=== PATIENT | female | born 1950 | race Caucasian/White ===

== ENCOUNTER 2017-06-09 16:41 | Emergency (ER) | payer MEDICARE, OTHER ==
[2017-06-09 17:03] VITALS: PULSE 66; TEMP 98; BMI 21.6
--- NOTE | 2017-06-09 17:08 | PDOC ---
Rapid Medical Evaluation Chief Complaint: Lightheaded Time Seen by Provider: 06/09/17 17:06 Medical Evaluation: Allergies Allergy/AdvReac Type Severity Reaction Status Date / Time No Known Allergies Allergy Verified 06/09/17 17:00 Vital Signs Temp Pulse Resp BP Pulse Ox 98 F 66 19 138/74 99 06/09/17 17:00 06/09/17 17:00 06/09/17 17:00 06/09/17 17:00 06/09/17 17:00 06/09/17 17:06 I have performed a brief in-person evaluation of this patient. The patient presents with a chief complaint of dizziness x 4 days. Patient reports dizziness especially with arising in the morning and changing position. Denies chest pain or shortness of breath. States as day progress dizziness is better but when she walks she has to stop at times Pertinent physical exam findings NAD lungs cta bilateral heart s1 s2 neuro: grossly intact I have ordered the following: meclizine, labs, ekg The patient will proceed to the ED for further evaluation.
[2017-06-09] MEDS ORDERED: MECLIZINE HCL 25 MG TABLET (FP) PO ONE (17:09)
[2017-06-09] MEDS ORDERED: MECLIZINE HCL 25 MG TABLET (FP) ONE (17:22)
--- NOTE | 2017-06-09 17:41 | PDOC ---
History of Present Illness - General Chief Complaint: Lightheaded Stated Complaint: FATIGUE Time Seen by Provider: 06/09/17 17:06 History Source: Patient, Family - History of Present Illness Timing/Duration: other Associated Symptoms: denies: chest pain, headaches, nausea/vomiting, shortness of breath, weakness Past History - Past Medical History Allergies/Adverse Reactions: Allergies Allergy/AdvReac Type Severity Reaction Status Date / Time No Known Allergies Allergy Verified 06/09/17 17:00 Home Medications: Ambulatory Orders Amlodipine Besylate [Norvasc -] 5 mg PO DAILY 08/01/14 Aspirin [Aspirin EC] 81 mg PO DAILY 08/01/14 Atorvastatin Ca [Lipitor -] 20 mg PO DAILY 08/01/14 Bisacodyl [Laxative] 20 mg PO ONCE 08/01/14 Lisinopril [Prinivil] 10 mg PO DAILY 08/01/14 Lorazepam 2 mg PO BID PRN 08/01/14 Metoprolol Succinate [Toprol Xl -] 25 mg PO DAILY 08/01/14 Meclizine HCl [Antivert -] 25 mg PO TID PRN #21 tablet 06/09/17 COPD: No Diabetes: Yes ("PRE-DIABETES") HTN: Yes Hypercholesterolemia: Yes (HYPERLIPIDEMIA) Psychiatric Problems: Yes (ANXIETY ON MEDS) Other medical history: VERTIGO - Immunization History Immunization Up to Date: Yes - Suicide/Smoking/Psychosocial Hx Smoking History: Never smoked Have you smoked in the past 12 months: No Hx Alcohol Use: No Substance Use Type: None Review of Systems - Review of Systems Constitutional: No: Chills, Fever, Weakness Respiratory: No: Shortness of Breath Cardiac (ROS): No: Chest Pain, Palpitations, Syncope ABD/GI: No: Nausea, Vomiting Neurological: Yes: Dizziness. No: Headache, Numbness, Tingling, Weakness *Physical Exam - Vital Signs Last Vital Signs Temp Pulse Resp BP Pulse Ox 98 F 66 19 138/74 99 06/09/17 17:00 06/09/17 17:00 06/09/17 17:00 06/09/17 17:00 06/09/17 17:00 - Physical Exam General Appearance: Yes: Appropriately Dressed. No: Apparent Distress HEENT: positive: Normal Voice Neck: positive: Supple Respiratory/Chest: positive: Lungs Clear, Normal Breath Sounds. negative: Respiratory Distress Cardiovascular: positive: Regular Rate, S1, S2 Gastrointestinal/Abdominal: positive: Soft. negative: Tender Extremity: positive: Normal Inspection Integumentary: positive: Dry, Warm Neurologic: positive: Fully Oriented, Alert, Normal Mood/Affect, Motor Strength 5/5, Finger to Nose (no nystagmus, Verena intact, no atxia, no drift). negative: Facial Droop, Confused, Disoriented ED Treatment Course - LABORATORY CBC & Chemistry Diagram: 06/09/17 17:51 06/09/17 17:51 - Medications Given in the ED: ED Medications Discontinued Medications Generic Name Dose Route Start Last Admin Trade Name Freq PRN Reason Stop Dose Admin Meclizine HCl 25 mg 06/09/17 17:09 06/09/17 17:24 Antivert - PO 06/09/17 17:10 25 mg ONCE ONE Administration Medical Decision Making - Medical Decision Making 06/09/17 17:26 66-year-old female, history of hypertension and pre-diabetes, here with dizziness. As per daughter, for the past 4 days, pt has been c/o sensation of room spinning, intermittent and worse when getting up from supine position. Denies any headache, dizziness, focal weakness, slurred speech or visual changes. No tinnitus or recent uri sxs. Daughter reports that patient had "vertigo" several years ago, but was never on meds. See exam Recurrent vertigo M/l peripheral, unlikely CVA Stable and well justine w/ no focal deficits -meclizine -orthostatic BP/ekg/labs -reassess 06/09/17 17:48 06/09/17 19:09 Signed out to MELYSSA Martinez pending CT results and reassessment. Plan is that upon discharge patient to get a prescription for meclizine and giving neuro follow-up 06/09/17 19:09 *DC/Admit/Observation/Transfer Diagnosis at time of Disposition: Vertigo, Orthostatic hypotension - Discharge Dispostion Disposition: HOME - Prescriptions Prescriptions: Meclizine HCl [Antivert -] 25 mg PO TID PRN #21 tablet PRN Reason: Vertigo - Referrals Referrals: Ailyn Saleh MD [Primary Care Provider] - Call tomorrow - Patient Instructions Printed Discharge Instructions: Vertigo Additional Instructions: Return immediately to the ER; New or severe headache, Temperature greater than 100.4F (38C), Seeing double or having trouble seeing clearly, Trouble speaking or hearing. Weakness in an arm or leg, An inability to walk without assistance, Passing out, Numbness or tingling, Chest pain and Vomiting that will not stop. Follow up with your doctor as soon as possible. take meclizine as prescribed. - Post Discharge Activity
[2017-06-09 18:26] LABS: BASO % 0.9 % (0-2.0); EOS % 0.4 % (0-4.5); HEMATOCRIT 40.8 % (32.4-45.2); LYMPH % 22.9 % (8-40); MCH 31.3 pg (25.7-33.7); MCHC 34.4 g/dl (32.0-36.0); MEAN PLT VOLUME 9.9 fl (7.5-11.1); MONO % 6.5 % (3.8-10.2); NEUT % 69.3 % (42.8-82.8); PLATELET COUNT 155 K/MM3 (134-434); RBC 4.48 M/mm3 (3.60-5.2); RDW 13.7 % (11.6-15.6)
[2017-06-09 18:41] LABS: PROTHROMBIN TIME (PATIENT) 11.3 SEC (9.98-11.88)
[2017-06-09 18:43] LABS: ACTIVATED PTT 29.1 SECONDS (26.9-34.4)
[2017-06-09 18:57] LABS: ANION GAP 7 (8-16); BILIRUBIN,TOTAL 0.5 mg/dL (0.2-1.0); BLOOD UREA NITROGEN 14 mg/dL (7-18); CHLORIDE 105 mmol/L (98-107); CO2 26 mmol/L (21-32); CREATININE 0.6 mg/dL (0.55-1.02); GLUCOSE,RANDOM 105 mg/dL (74-106); POTASSIUM 4.1 mmol/L (3.5-5.1); SGOT/AST 16 U/L (15-37); SGPT/ALT 25 U/L (12-78); SODIUM 138 mmol/L (136-145)
[2017-06-09 19:01] LABS: ALK PHOS 73 U/L (45-117)
--- NOTE | 2017-06-09 19:37 | PDOC ---
*Physical Exam - Vital Signs Last Vital Signs Temp Pulse Resp BP Pulse Ox 98 F 66 19 138/74 99 06/09/17 17:00 06/09/17 17:00 06/09/17 17:00 06/09/17 17:00 06/09/17 17:00 ED Treatment Course - LABORATORY CBC & Chemistry Diagram: 06/09/17 17:51 06/09/17 17:51 - ADDITIONAL ORDERS Additional order review: Laboratory Results 06/09/17 06/09/17 17:51 17:51 PT with INR 11.30 INR 1.00 PTT (Actin FS) 29.1 Sodium 138 Potassium 4.1 Chloride 105 Carbon Dioxide 26 Anion Gap 7 L BUN 14 Creatinine 0.6 Creat Clearance w eGFR > 60 Random Glucose 105 Calcium 9.0 Total Bilirubin 0.5 AST 16 ALT 25 Alkaline Phosphatase 73 Creatine Kinase 28 Troponin I < 0.02 Total Protein 7.0 Albumin 4.0 06/09/17 17:51 RBC 4.48 MCV 91.0 MCHC 34.4 RDW 13.7 MPV 9.9 Neutrophils % 69.3 Lymphocytes % 22.9 Monocytes % 6.5 Eosinophils % 0.4 Basophils % 0.9 - Medications Given in the ED: ED Medications Discontinued Medications Generic Name Dose Route Start Last Admin Trade Name Freq PRN Reason Stop Dose Admin Meclizine HCl 25 mg 06/09/17 17:09 06/09/17 17:24 Antivert - PO 06/09/17 17:10 25 mg ONCE ONE Administration Medical Decision Making - Medical Decision Making 06/09/17 19:56 patient reports feeling better. PERRLA, no nystagmus. - Ruba cabrera pike. Head CT negative. will d/c home with meclizine 06/09/17 20:39 Orthostatic v/s noted. patient instructed to increase PO and safety precautions reviewed. *DC/Admit/Observation/Transfer Diagnosis at time of Disposition: Vertigo, Orthostatic hypotension - Discharge Dispostion Disposition: HOME - Prescriptions Prescriptions: Meclizine HCl [Antivert -] 25 mg PO TID PRN #21 tablet PRN Reason: Vertigo - Referrals Referrals: Ailyn Saleh MD [Primary Care Provider] - Call tomorrow - Patient Instructions Printed Discharge Instructions: Vertigo Additional Instructions: Return immediately to the ER; New or severe headache, Temperature greater than 100.4F (38C), Seeing double or having trouble seeing clearly, Trouble speaking or hearing. Weakness in an arm or leg, An inability to walk without assistance, Passing out, Numbness or tingling, Chest pain and Vomiting that will not stop. Follow up with your doctor as soon as possible. take meclizine as prescribed. - Post Discharge Activity
[2017-06-09 20:30] VITALS: BP 131/74
--- NOTE | 2017-06-10 14:20 | EKG ---
Test Reason : Blood Pressure : / mmHG Vent. Rate : 058 BPM Atrial Rate : 058 BPM P-R Int : 144 ms QRS Dur : 074 ms QT Int : 426 ms P-R-T Axes : 067 046 048 degrees QTc Int : 418 ms SINUS BRADYCARDIA POSSIBLE LEFT ATRIAL ENLARGEMENT BORDERLINE ECG WHEN COMPARED WITH ECG OF 01-AUG-2014 06:17, NO SIGNIFICANT CHANGE WAS FOUND Confirmed by MD Rose, Manav ([id number]) on 06/10/2017 2:19:57 PM Referred By: Confirmed By:Manav Rose MD
== END 2017-06-09 20:53 | disposition home or self-care (01) ==
LOC: JER 16:41
DX: I95.1 Orthostatic hypotension (principal); R42 Dizziness and giddiness; I10 Essential (primary) hypertension; E78.5 Hyperlipidemia, unspecified; R73.03 Prediabetes; F41.9 Anxiety disorder, unspecified
CPT/HCPCS: 36415; 70450-TC; 80053; 82550; 84484; 85025; 85610; 85730; 93005; 93010; 99283-25

== ENCOUNTER 2019-12-21 15:00 | Emergency (ER) | payer MEDICARE, OTHER ==
--- NOTE | 2019-12-21 15:13 | PDOC ---
Rapid Medical Evaluation Time Seen by Provider: 12/21/19 15:12 Medical Evaluation: Allergies Allergy/AdvReac Type Severity Reaction Status Date / Time No Known Allergies Allergy Verified 06/09/17 17:00 12/21/19 15:13 I have performed a brief in-person evaluation of this patient The patient presents with a chief complaint of:Lightheadedness and weakness on and off x 2 days. Had similar sxs in past w/ negative w/u in past and dx w/ vertigo per daughter, not on meds. No recent cardiac w/u. F/u with PMD at [facility]. Has no anesthesiologist attending. H/o HTN, HLD, depression, anxiety Pertinent physical exam findings:stable, NAD I have ordered the following:ekg/labs The patient will proceed to the ED for further evaluation Discharge Disposition - Diagnosis Dizziness - Referrals - Patient Instructions - Post Discharge Activity
[2019-12-21 15:22] VITALS: BP 150/57; PULSE 59; TEMP 97.6; BMI 24.8
--- NOTE | 2019-12-21 15:52 | PDOC ---
History of Present Illness - General Chief Complaint: Weakness Stated Complaint: DIZZINESS Time Seen by Provider: 12/21/19 15:12 - History of Present Illness Initial Comments: 12/21/19 15:50 HPI 69 y/o F hx of HTN, HLD, depression, anxiety presents to the ED with 2 days of generalized weakness which she describes as a lack of energy. P -pt also states she has been feeling more depressed lately. Patient denies MENDIOLA, vision change, palpitations, cough, wheezing, orthopena, PND, leg swelling/pain, N/V, F,C, CP, SOB, urinary complaints, hematuria, BPR, abdominal pain, diarrhea, constipation, lightheadedness, weakness, sensory changes. PMHx: as noted above ROS: as noted SHx: Denies Etoh, IVDA, tobacco use Allergies: NKDA ROS: GENERAL/CONSTITUTIONAL: No fever or chills. No weakness. HEAD, EYES, EARS, NOSE AND THROAT: No change in vision. No ear pain or discharge. No sore throat. CARDIOVASCULAR: No chest pain or shortness of breath RESPIRATORY: No cough, wheezing, or hemoptysis. GASTROINTESTINAL: No nausea, vomiting, diarrhea or constipation. GENITOURINARY: No dysuria, frequency, or change in urination. MUSCULOSKELETAL: No joint or muscle swelling or pain. No neck or back pain. SKIN: No rash NEUROLOGIC: No headache, vertigo, loss of consciousness, or change in strength/sensation. ENDOCRINE: No increased thirst. No abnormal weight change HEMATOLOGIC/LYMPHATIC: No anemia, easy bleeding, or history of blood clots. ALLERGIC/IMMUNOLOGIC: No hives or skin allergy. PE: GENERAL: Awake, alert, and fully oriented, in no acute distress HEAD: No signs of trauma, normocephalic, atraumatic EYES: PERRLA, EOMI, sclera anicteric, conjunctiva clear ENT: Auricles normal inspection, hearing grossly normal, nares patent, oropharynx clear without exudates. Moist mucosa NECK: Normal ROM, supple, no lymphadenopathy, JVD, or masses LUNGS: No distress, speaks full sentences, clear to auscultation bilaterally HEART: Regular rate and rhythm, normal S1 and S2, no murmurs, rubs or gallops, peripheral pulses normal and equal bilaterally. ABDOMEN: Soft, nontender, normoactive bowel sounds. No guarding, no rebound. No masses EXTREMITIES : Normal inspection, Normal range of motion, no edema. No clubbing or cyanosis NEUROLOGICAL: Cranial nerves II through XII grossly intact. Normal speech, normal gait, no focal sensorimotor deficits SKIN: Warm, Dry, normal turgor, no rashes or lesions noted MDM DDx including but not limited to: covid, anemia, acs Workup: TX: Scores - HEART score - EKG: normal sinus rhythm, HR bpm, WI ms, QRS ms, QTc ms ED course CXR: meds: Re-assessment: 12/21/19 16:26 12/21/19 16:33 12/21/19 18:01 12/21/19 18:42 12/23/19 01:09 Past History - Medical History Allergies/Adverse Reactions: Allergies Allergy/AdvReac Type Severity Reaction Status Date / Time No Known Allergies Allergy Verified 06/09/17 17:00 Home Medications: Ambulatory Orders Amlodipine Besylate [Norvasc -] 5 mg PO DAILY 08/01/14 Aspirin [Aspirin EC] 81 mg PO DAILY 08/01/14 Atorvastatin Ca [Lipitor -] 20 mg PO DAILY 08/01/14 Bisacodyl [Laxative] 20 mg PO ONCE 08/01/14 Lisinopril [Prinivil] 10 mg PO DAILY 08/01/14 Lorazepam 2 mg PO BID PRN 08/01/14 Metoprolol Succinate [Toprol Xl -] 25 mg PO DAILY 08/01/14 Meclizine HCl [Antivert -] 25 mg PO TID PRN #21 tablet 06/09/17 Cardiac Disorders: Yes COPD: No Diabetes: Yes ("PRE-DIABETES") HTN: Yes Hypercholesterolemia: Yes (HYPERLIPIDEMIA) Psychiatric Problems: Yes (ANXIETY ON MEDS) - Immunization History Immunization Up to Date: Yes - Psycho-Social/Smoking History Smoking History: Never smoked Have you smoked in the past 12 months: No *Physical Exam - Vital Signs Last Vital Signs Temp Pulse Resp BP Pulse Ox 97.6 F 59 L 18 150/57 L 99 12/21/19 15:19 12/21/19 15:19 12/21/19 15:19 12/21/19 15:19 12/21/19 15:19 ED Treatment Course - LABORATORY CBC & Chemistry Diagram: 12/21/19 16:45 09/15/20 16:45 Discharge - Discharge Information Problems reviewed: Yes Clinical Impression/Diagnosis: Dizziness, Weakness Condition: Stable Disposition: HOME - Admission No - Follow up/Referral Referrals: Ailyn Saleh MD [Primary Care Provider] - - Patient Discharge Instructions Patient Printed Discharge Instructions: [facility]-Coronavirus Instructions, R- [facility] COVID-19 Isolation Protocol Additional Instructions: Follow up with you primary care provider in the next few days. RETURN TO THE ER: If you have worsening of symptoms, fevers, chills, nausea, vomiting. - Post Discharge Activity
[2019-12-21 17:00] LABS: BASO % 0.8 % (0-2.0); EOS % 0.2 % (0-4.5); HEMATOCRIT 39.9 % (32.4-45.2); HEMOGLOBIN 13.7 GM/dL (10.7-15.3); LYMPH % 17.9 % (8-40); MCH 31.6 pg (25.7-33.7); MCHC 34.4 g/dl (32.0-36.0); MEAN PLT VOLUME 10.4 fl (7.5-11.1); MONO % 5.1 % (3.8-10.2); PLATELET COUNT 156 K/MM3 (134-434); RBC 4.33 M/mm3 (3.60-5.2); RDW 13.5 % (11.6-15.6); WHITE BLOOD COUNT 8.8 K/mm3 (4.0-10.0)
[2019-12-21 17:29] LABS: ALK PHOS 90 U/L (45-117); ANION GAP 6 MMOL/L (8-16); BILIRUBIN,TOTAL 0.5 mg/dL (0.2-1); BLOOD UREA NITROGEN 15.4 mg/dL (7-18); CALCIUM 9.8 mg/dL (8.5-10.1); CHLORIDE 105 mmol/L (98-107); CO2 30 mmol/L (21-32); CREATININE 0.7 mg/dL (0.55-1.3); GLUCOSE,RANDOM 137 mg/dL (74-106); POTASSIUM 4.3 mmol/L (3.5-5.1); SGOT/AST 21 U/L (15-37); SODIUM 140 mmol/L (136-145); TOT PROT 7.2 g/dl (6.4-8.2)
[2019-12-21 17:38] LABS: SGPT/ALT 26 U/L (13-61)
[2019-12-21 18:25] LABS: URINE APPEARANCE CLEAR; URINE BILIRUBIN NEGATIVE (NEGATIVE); URINE COLOR YELLOW; URINE GLUCOSE (UA) NEGATIVE (NEGATIVE); URINE KETONE NEGATIVE (NEGATIVE); URINE LEUK ESTERASE NEGATIVE (NEGATIVE); URINE NITRITE NEGATIVE (NEGATIVE); URINE PROTEIN NEGATIVE (NEGATIVE); URINE UROBILINOGEN 0.2 mg/dL (0.2-1.0)
--- NOTE | 2019-12-21 18:30 | PDOC ---
Documentation entered by Sol Perry SCRIBE, acting as scribe for Mihcael Fitzgerald MD. Michael Fitzgerald MD: This documentation has been prepared by the Orlando peña Brenda, SCRIBE, under my direction and personally reviewed by me in its entirety. I confirm that the documentation accurately reflects all work, treatment, procedures, and medical decision making performed by me. Attending Attestation - Resident Resident Name: Vidal Ray - ED Attending Attestation I have performed the following: I have examined & evaluated the patient, The case was reviewed & discussed with the resident, I agree w/resident's findings & plan, Exceptions are as noted - HPI HPI: 12/21/19 18:19 77 years old with past medical history significant for hypertension hyperlipidemia depression anxiety presents with 2-day history of generalized weakness no chest pain no shortness of breath no nausea no vomiting diarrhea symptoms are mild to moderate persistent constant no exacerbating relieving factors. - Physicial Exam PE: 12/21/19 18:29 Vitals: Triage Vital signs reviewed anything tachypnea General Appearance: No acute distress, well nourished well developed, Head: Atraumatic, Cardiac: Regular rate and rhythym, no murmurs, no rubs, no gallops, Lungs: Clear to auscultation bilateral, good air movement bilaterally, Abdomen: Soft, non distended, normal bowel sounds, non tender to palpation Extremities: Full range of motion to all extremities, no cyanosis, clubbing, or edema Skin: Warm and dry, no rashes or lesions, no rash, no petechiae Neuro: AOX3; cranial Nerves 2-12 grossly intact, strength intact to all extremities, sensation intact to all extremities, gait normal Psych: Normal mood, normal affect - Medical Decision Making 12/21/19 18:29 well-appearing no apparent distress with 2-day history of fatigue EKG demonstrates normal sinus rhythm no ST elevations or T wave inversions labs are within normal limits chest x-ray within normal limits patient states she feels much better. Requesting COVID test which has been sent Troponin negative. Heart score 2 Patient will follow-up with her PCP this week Findings, need for follow-up and strict return instructions discussed with patient. 12/23/19 15:25 Discharge - Discharge Information Problems reviewed: Yes Clinical Impression/Diagnosis: Dizziness, Weakness Condition: Stable Disposition: HOME - Follow up/Referral Referrals: Ailyn Saleh MD [Primary Care Provider] - - Patient Discharge Instructions Patient Printed Discharge Instructions: [facility]-Coronavirus Instructions, R- [facility] COVID-19 Isolation Protocol Additional Instructions: Follow up with you primary care provider in the next few days. RETURN TO THE ER: If you have worsening of symptoms, fevers, chills, nausea, vomiting. - Post Discharge Activity
--- OUTSIDE RECORDS SUMMARY | 2019-12-21 18:38 | XMS ---
:1950 Author Organization [facility] Care Team Providers Name Role Phone ANTOINETTE KUMAR Unavailable Unavailable Re-disclosure Warning The records that you are about to access may contain information from federally- assisted alcohol or drug abuse programs. If such information is present, then the following federally mandated warning applies: This information has been disclosed to you from records protected by federal confidentiality rules (42 CFR part 2). The federal rules prohibit you from making any further disclosure of this information unless further disclosure is expressly permitted by the written consent of the person to whom it pertains or as otherwise permitted by 42 CFR part 2. A general authorization for the release of medical or other information is NOT sufficient for this purpose. The Federal rules restrict any use of the information to criminally investigate or prosecute any alcohol or drug abuse patient.The records that you are about to access may contain highly sensitive health information, the redisclosure of which is protected by Article 27-F of the [place] State Public Health law. If you continue you may haveaccess to information: Regarding HIV / AIDS; Provided by facilities licensed or operated by the [facility] Office of Mental Health; or Provided by the [facility] Office for People With Developmental Disabilities. If such information is present, then the following [facility] mandated warning applies: This information has been disclosed to you from confidential records which are protected by state law. State law prohibits you from making any further disclosure of this information without the specific written consent of the person to whom it pertains, or as otherwise permitted by law. Any unauthorized further disclosure in violation of state law may result in a fine or long term sentence or both. A general authorization for the release of medical or other information is NOT sufficient authorization for further disclosure. Allergies and Adverse Reactions Type Description Substance Reaction Status Data Source(s ) Adverse Reaction N.K.D.A. N.K.D.A. Info Not Active eCW1 (Sa int Available [facility]) No Known No Known No Known eCW1 ([facility]) No Known No Known No Known eCW1 ([facility] Allergies Allergies Allergies [facility]) No Known No Known No Known eCW1 ([facility] Allergies Allergies Allergies [facility] Medical [facility]) No Known No Known No Known eCW1 ([facility] Allergies Allergies Allergies [facility] Medical [facility]) No Known No Known No Known eCW1 ([facility] Allergies Allergies Allergies [facility] Medical [facility]) No Information No Information No Information eC W1 ([facility]) No Information No Information No Information eC W1 ([facility]) No Known No Known No Known eCW1 ([facility]ergies [facility]ergies Allergies [facility]) No Known No Known No Known eCW1 ([facility] Allergies Allergies Allergies [facility]) No Information No Information No Information eC W1 ([facility]) No Known No Known No Known eCW1 ([facility] Allergies Allergies Allergies [facility]) No Information No Information No Information eC W1 ([facility]) No Information No Information No Information eC W1 ([facility]) No Information No Information No Information eC W1 ([facility]) Propensity to Propensity to No Known eCW1 (Sa int adverse reactions adverse reactions allergies T[facility] (disorder) (disorder) [facility]) Propensity to Propensity to No Known eCW1 (Sa int adverse reactions adverse reactions allergies Tyesha (disorder) (disorder) [facility]) Propensity to Propensity to No Known eCW1 (Sa int adverse reactions adverse reactions allergies Tyesha (disorder) (disorder) Medical Practice ) Encounters Encounter Providers Location Date Indications Data Source(s ) (TEL) [address] 12/06/2019 eCW1 ([facility] 12:00:00 Tyesha Medic al AM EDT Practice PC) (TEL) [address] 11/12/2019 eCW1 ([facility] 12:00:00 Tyesha Medic al AM EDT Practice PC) Outpatient [address] 11/01/2019 eCW1 ([facility] 12:00:00 Tyesha Medic al AM EDT Practice PC) (TEL) [address] 10/04/2019 eCW1 ([facility] 12:00:00 Tyesha Medic al AM EDT Practice PC) [address] 08/23/2019 eCW1 ([facility] 12:00:00 Tyesha Medic al AM EDT Practice PC) [address] 07/12/2019 eCW1 ([facility] 12:00:00 Tyesha Medic al AM EDT Practice PC) [address] 06/07/2019 eCW1 ([facility] 12:00:00 Tyesha Medic al AM EST Practice PC) [address] 05/03/2019 eCW1 ([facility] 12:00:00 Tyesha Medic al AM EST Practice PC) [address] 04/20/2019 eCW1 ([facility] 12:00:00 Tyesha Medic al AM EST Practice PC) [address] 03/08/2019 eCW1 ([facility] 12:00:00 Tyesha Medic al AM EST Practice PC) [address] 03/01/2019 eCW1 ([facility] 12:00:00 Tyesha Medic al AM EST Practice PC) [address] 02/01/2019 eCW1 ([facility] 12:00:00 Tyesha Medic al AM EDT Practice PC) [address] 01/01/2019 eCW1 ([facility] 12:00:00 Tyesha Medic al AM EDT Practice PC) [address] 12/10/2018 eCW1 ([facility] 12:00:00 Tyesha Medic al AM EDT Practice PC) [address] 11/23/2018 eCW1 ([facility] 12:00:00 Tyesha Medic al AM EDT Practice PC) [address] 11/16/2018 eCW1 ([facility] 12:00:00 Tyseha Medic al AM EDT Practice PC) [address] 10/26/2018 eCW1 ([facility] 12:00:00 Tyesha Medic al AM EDT Practice PC) [address] 10/21/2018 eCW1 ([facility] 12:00:00 Tyesha Medic al AM EDT Practice PC) [address] 10/06/2018 eCW1 ([facility] 12:00:00 Tyesha Medic al AM EDT Practice PC) [address] 09/09/2018 eCW1 ([facility] 12:00:00 Tyesha Medic al AM EDT Practice PC) [address] 08/20/2018 eCW1 ([facility] 12:00:00 Tyesha Medic al AM EDT Practice PC) [address] 08/17/2018 eCW1 ([facility] 12:00:00 T[facility]ha Medic al AM EDT Practice PC) Outpatient Attender: ANTOINETTE Butler 07/28/2018 [facility] 10:03:00 Medical Catherine CURRYAdmitter: AM EDT ANTOINETTE SWANUTA [address] 07/20/2018 eCW1 ([facility] 12:00:00 Tyesha Medic al AM EDT Practice PC) [address] 06/22/2018 eCW1 ([facility] 11:21:00 Tyesha Medic al AM EDT - Practice PC) 06/22/2018 11:21:00 AM EDT [address] 05/06/2018 eCW1 ([facility] 01:01:00 Tyesha Medic al PM EST - Practice PC) 05/06/2018 01:01:00 PM EST [address] 05/06/2018 eCW1 ([facility] 01:01:00 Tyesha Medic al PM EST - Practice PC) 05/06/2018 01:01:00 PM EST [address] 04/13/2018 eCW1 ([facility] 01:15:00 Tyesha Medic al PM EST - Practice PC) 04/13/2018 01:15:00 PM EST [address] 03/05/2018 eCW1 ([facility] 12:00:00 Tyesha Medic al AM EST Practice PC) [address] 02/02/2018 eCW1 ([facility] 12:00:00 Tyesha Medic al AM EDT Practice PC) [address] 12/22/2017 eCW1 ([facility] 12:00:00 Tyesha Medic al AM EDT Practice PC) [address] 12/17/2017 eCW1 ([facility] 12:00:00 Tyesha Medic al AM EDT Practice PC) [address] 12/11/2017 eCW1 ([facility] 12:00:00 Tyesha Medic al AM EDT Practice PC) [address] 11/24/2017 eCW1 ([facility] 12:00:00 Tyesha Medic al AM EDT Practice PC) [address] 10/06/2017 eCW1 ([facility] 12:00:00 Tyesha Medic al AM EDT Practice PC) [address] 09/22/2017 eCW1 ([facility] 12:00:00 Tyesha Medic al AM EDT Practice PC) [address] 07/21/2017 eCW1 ([facility] 12:00:00 Tyesha Medic al AM EDT Practice PC) [address] 06/23/2017 eCW1 ([facility] 12:00:00 Tyesha Medic al AM EDT Practice PC) [address] 05/22/2017 eCW1 ([facility] 12:00:00 Tyesha Medic al AM EST Practice PC) [address] 04/01/2017 eCW1 ([facility] 12:00:00 Tyesha Medic al AM EST Practice PC) [address] 03/17/2017 eCW1 ([facility] 12:00:00 Tyesha Medic al AM EST Practice PC) [address] 02/10/2017 eCW1 ([facility] 12:00:00 Tyesha Medic al AM EST Practice PC) [address] 01/20/2017 eCW1 ([facility] 12:00:00 Tyesha Medic al AM EDT Practice PC) [address] 11/29/2016 eCW1 ([facility] 12:00:00 Tyesha Medic al AM EDT Practice PC) [address] 11/29/2016 eCW1 ([facility] 12:00:00 Tyesha Medic al AM EDT Practice PC) [address] 11/29/2016 eCW1 ([facility] 12:00:00 Tyesha Medic al AM EDT Practice PC) [address] 10/28/2016 eCW1 ([facility] 12:00:00 Tyesha Medic al AM EDT Practice PC) [address] 09/09/2016 eCW1 ([facility] 12:00:00 Tyesha Medic al AM EDT Practice PC) [address] 08/28/2016 eCW1 ([facility] 12:00:00 Tyesha Medic al AM EDT Practice PC) [address] 08/12/2016 eCW1 ([facility] 12:00:00 Tyesha Medic al AM EDT Practice PC) [address] 08/07/2016 eCW1 ([facility] 12:00:00 Tyesha Medic al AM EDT Practice PC) [address] 08/05/2016 eCW1 ([facility] 12:00:00 Tyesha Medic al AM EDT Practice PC) [address] 06/17/2016 eCW1 ([facility] 12:00:00 Tyesha Medic al AM EDT Practice PC) [address] 05/22/2016 eCW1 ([facility] 12:00:00 Tyesha Medic al AM EST Practice PC) [address] 05/15/2016 eCW1 ([facility] 12:00:00 Tyesha Medic al AM EST Practice PC) [address] 04/17/2016 eCW1 ([facility] 12:00:00 Tyesha Medic al AM EST Practice PC) [address] 03/18/2016 eCW1 ([facility] 12:00:00 Tyesha Medic al AM EST Practice PC) [address] 03/05/2016 eCW1 ([facility] 12:00:00 Tyesha Medic al AM EST Practice PC) [address] 03/04/2016 eCW1 ([facility] 12:00:00 Tyesha Medic al AM EST Practice PC) [address] 02/12/2016 eCW1 ([facility] 12:00:00 Tyesha Medic al AM EST Practice PC) [address] 02/05/2016 eCW1 ([facility] 12:00:00 Tyesha Medic al AM EDT Practice PC) [address] 01/15/2016 eCW1 ([facility] 12:00:00 Tyesha Medic al AM EDT Practice PC) [address] 01/11/2016 eCW1 ([facility] 12:00:00 Tyesha Medic al AM EDT Practice PC) [address] 12/25/2015 eCW1 ([facility] 12:00:00 Tyesha Medic al AM EDT Practice PC) [address] 12/08/2015 eCW1 ([facility] 12:00:00 Tyesha Medic al AM EDT Practice PC) [address] 11/22/2015 eCW1 ([facility] 12:00:00 Tyesha Medic al AM EDT Practice PC) [address] 11/09/2015 eCW1 ([facility] 12:00:00 Tyesha Medic al AM EDT Practice PC) [address] 11/07/2015 eCW1 ([facility] 12:00:00 Tyesha Medic al AM EDT Practice PC) [address] 10/11/2015 eCW1 ([facility] 12:00:00 Tyesha Medic al AM EDT Practice PC) [address] 10/03/2015 eCW1 ([facility] 12:00:00 Tyesha Medic al AM EDT Practice PC) [address] 09/19/2015 eCW1 ([facility] 12:00:00 Tyesha Medic al AM EDT Practice PC) [address] 09/12/2015 eCW1 ([facility] 12:00:00 Tyesha Medic al AM EDT Practice PC) [address] 08/30/2015 eCW1 ([facility] 12:00:00 Tyesha Medic al AM EDT Practice PC) [address] 08/04/2015 eCW1 ([facility] 12:00:00 Tyesha Medic al AM EDT Practice PC) [address] 07/26/2015 eCW1 ([facility] 12:00:00 Tyesha Medic al AM EDT Practice PC) [address] 06/29/2015 eCW1 ([facility] 12:00:00 Tyesha Medic al AM EDT Practice PC) [address] 06/01/2015 eCW1 ([facility] 12:00:00 Tyesha Medic al AM EST Practice PC) [address] 05/25/2015 eCW1 ([facility] 12:00:00 Tyesha Medic al AM EST Practice PC) [address] 05/03/2015 eCW1 ([facility] 12:00:00 Tyesha Medic al AM EST Practice PC) [address] 05/03/2015 eCW1 ([facility] 12:00:00 Tyesha Medic al AM EST Practice PC) [address] 05/01/2015 eCW1 ([facility] 12:00:00 Tyesha Medi guille AM EST Practice PC) [address] 03/15/2015 eCW1 ([facility] 12:00:00 Tyesha Medic al AM EST Practice PC) Immunizations Vaccine Date Status Description Data Source(s) Pneumococcal conjugate PCV 02/01/2019 completed e CW1 ([facility] 01:24:00 PM EDT [facility]) Pneumococcal conjugate PCV 02/01/2019 completed e CW1 ([facility] 13 01:24:00 PM EDT Medical [facility] PC) Pneumococcal conjugate PCV 02/01/2019 completed e CW1 ([facility] 13 01:24:00 PM EDT Medical [facility] PC) Pneumococcal conjugate PCV 02/01/2019 completed e CW1 ([facility] 13 01:24:00 PM EDT Medical [facility] PC) Pneumococcal conjugate PCV 02/01/2019 completed e CW1 ([facility] 13 01:24:00 PM EDT Medical [facility]ac [facility] PC) IIV3. This vaccine code is 02/01/2019 completed e CW1 ([facility] one of two which replace 01:23:00 PM EDT Medical Practice PC) CVX 15, influenza, split virus. IIV3. This vaccine code is 02/01/2019 completed e CW1 ([facility] one of two which replace 01:23:00 PM EDT Medical Practice PC) CVX 15, influenza, split virus. IIV3. This vaccine code is 02/01/2019 completed e CW1 ([facility] one of two which replace 01:23:00 PM EDT Medical Practice PC) CVX 15, influenza, split virus. IIV3. This vaccine code is 02/01/2019 completed e CW1 ([facility] one of two which replace 01:23:00 PM EDT Medical Practice PC) CVX 15, influenza, split virus. IIV3. This vaccine code is 02/01/2019 completed e CW1 ([facility] one of two which replace 01:23:00 PM EDT Medical Practice PC) CVX 15, influenza, split virus. IIV3. This vaccine code is 02/02/2018 completed e CW1 ([facility] one of two which replace 06:49:00 PM EDT Medical Practice PC) CVX 15, influenza, split virus. IIV3. This vaccine code is 02/02/2018 completed e CW1 ([facility] one of two which replace 06:49:00 PM EDT Medical Practice PC) CVX 15, influenza, split virus. IIV3. This vaccine code is 02/02/2018 completed e CW1 ([facility] one of two which replace 06:49:00 PM EDT Medical Practice PC) CVX 15, influenza, split virus. IIV3. This vaccine code is 02/02/2018 completed e CW1 ([facility] one of two which replace 06:49:00 PM EDT Medical Practice PC) CVX 15, influenza, split virus. No Known Immunizations completed eCW1 ([facility]) No Known Immunizations completed [facility] No Known Immunizations completed eCW1 ([facility]) No Known Immunizations completed eCW1 ([facility]) No Known Immunizations completed eCW1 ([facility]) No Known Immunizations completed eCW1 ([facility]) No Known Immunizations completed eCW1 ([facility]) No Known Immunizations completed eCW1 ([facility]) No Known Immunizations completed eCW1 ([facility]) Medications Medication Brand Start Product Dose Route Administrative [facility] Indications Reaction Description Data Name Date Form Instructions Instructions Source(s) Sertraline Sertra .0 suspend Sertral ine eCW1 50 MG Oral line 2018 {tabl ed HCl 50 MG (Sa int Tablet HCl 50 12:00: et} Tyesha Sertraline MG 00 AM Medical HCl 50 MG EDT Practice PC) Sertraline Sertra .0 suspend Sertral ine eCW1 50 MG Oral line 2018 {tabl ed HCl 50 MG (Sa int Tablet HCl 50 12:00: et} Tyesha Sertraline MG 00 AM Medical HCl 50 MG EDT Practice PC) Sertraline Sertra .0 suspend Sertral ine eCW1 50 MG Oral line 2019 {tabl ed HCl 50 MG (Sa int Tablet HCl 50 12:00: et} Tyesha Sertraline MG 00 AM Medical HCl 50 MG EDT Practice PC) Sertraline Sertra 07/20/ active 1 tablet eCW1 50 MG Oral line 2019 ([facility] Tablet HCl 50 12:00: Tyesha Sertraline MG 00 AM Medical HCl 50 MG EDT Practice PC) Sertraline Sertra 07/20/ active 1 tablet eCW1 50 MG Oral line 2019 ([facility] Tablet HCl 50 12:00: Tyesha Sertraline MG 00 AM Medical HCl 50 MG EDT Practice PC) Sertraline Sertra 07/20/ suspend 1 table t eCW1 50 MG Oral line 2019 ed ([facility] Tablet HCl 50 12:00: Tyesha Sertraline MG 00 AM Medical HCl 50 MG EDT Practice PC) Sertraline Sertra 07/20/ suspend 1 table t eCW1 50 MG Oral line 2019 ed ([facility] Tablet HCl 50 12:00: Tyesha Sertraline MG 00 AM Medical HCl 50 MG EDT Practice PC) Sertraline Sertra .0 suspend Sertral ine eCW1 50 MG Oral line 2019 {tabl ed HCl 50 MG (Sa int Tablet HCl 50 12:00: et} Tyesha Sertraline MG 00 AM Medical HCl 50 MG EDT Practice PC) Sertraline Sertra 07/20/ suspend 1 table t eCW1 50 MG Oral line 2019 ed ([facility] Tablet HCl 50 12:00: Tyesha Sertraline MG 00 AM Medical HCl 50 MG EDT Practice PC) Sertraline Sertra 04/13/ suspend 1 table t eCW1 25 MG Oral line 2019 ed ([facility] Tablet HCl 25 12:00: Tyesha Sertraline MG 00 AM Medical HCl 25 MG EST Practice PC) Sertraline Sertra suspend 1 table t eCW1 25 MG Oral line 2019 ed ([facility] Tablet HCl 25 12:00: Tyesha Sertraline MG 00 AM Medical HCl 25 MG EST Practice PC) Sertraline Sertra active 1 tablet eCW1 25 MG Oral line 2019 ([facility] Tablet HCl 25 12:00: Tyesha Sertraline MG 00 AM Medical HCl 25 MG EST Practice PC) Sertraline Sertra .0 suspend Sertral ine eCW1 25 MG Oral line 2019 {tabl ed HCl 25 MG (Sa int Tablet HCl 25 12:00: et} Tyesha Sertraline MG 00 AM Medical HCl 25 MG EST Practice PC) Sertraline Sertra active 1 tablet eCW1 25 MG Oral line 2019 ([facility] Tablet HCl 25 12:00: Tyesha Sertraline MG 00 AM Medical HCl 25 MG EST Practice PC) Sertraline Sertra .0 suspend Sertral ine eCW1 25 MG Oral line 2019 {tabl ed HCl 25 MG (Sa int Tablet HCl 25 12:00: et} Tyesha Sertraline MG 00 AM Medical HCl 25 MG EST Practice PC) Sertraline Sertra 04/13/ suspend 1 table t eCW1 25 MG Oral line 2019 ed ([facility] Tablet HCl 25 12:00: Tyesha Sertraline MG 00 AM Medical HCl 25 MG EST Practice PC) Sertraline Sertra .0 suspend Sertral ine eCW1 25 MG Oral line 2019 {tabl ed HCl 25 MG (Sa int Tablet HCl 25 12:00: et} Tyesha Sertraline MG 00 AM Medical HCl 25 MG EST Practice PC) Sertraline Sertra 04/13/ 1.0 suspend Sertral ine eCW1 25 MG Oral line 2019 {tabl ed HCl 25 MG (Sa int Tablet HCl 25 12:00: et} Tyesha Sertraline MG 00 AM Medical HCl 25 MG EST Practice PC) Sertraline Sertra 04/13/ Tablet Orally 25 MG Orally complet 1 tablet eCW1 25 MG Oral line 2019 Once a day ed (Sa int Tablet HCl 12:00: Tyesha Sertraline 00 AM Medical HCl EST Practice PC) Azithromyci Azithr 10/06/ suspend 2 tabl ets eCW1 n 250 MG omycin 2018 ed on the first ( [facility] Oral Tablet 250 MG 12:00: day, then 1 Tyesha 00 AM tablet daily Medica l EDT for 4 days Practice PC) Azithromyci Azithr 10/06/ suspend Azithr omycin eCW1 n 250 MG omycin 2018 ed 250 MG ([facility] Oral Tablet 250 MG 12:00: Srinivasa banner 00 AM Medical EDT Practice PC) Azithromyci Azithr 10/06/ suspend Azithr omycin eCW1 n 250 MG omycin 2018 ed 250 MG ([facility] Oral Tablet 250 MG 12:00: Srinivasa banner 00 AM Medical EDT Practice PC) Azithromyci Azithr 10/06/ suspend 2 tabl ets eCW1 n 250 MG omycin 2018 ed on the first ( [facility] Oral Tablet 250 MG 12:00: day, then 1 Tyesha 00 AM tablet daily Medica l EDT for 4 days Practice PC) Azithromyci Azithr 10/06/ suspend Azithr omycin eCW1 n 250 MG omycin 2018 ed 250 MG ([facility] Oral Tablet 250 MG 12:00: Srinivasa phs 00 AM Medical EDT Practice PC) Azithromyci Azithr 10/06/ suspend 2 tabl ets eCW1 n 250 MG omycin 2018 ed on the first ( [facility] Oral Tablet 250 MG 12:00: day, then 1 Tyesha 00 AM tablet daily Medica l EDT for 4 days Practice PC) Azithromyci Azithr 10/06/ suspend Azithr omycin eCW1 n 250 MG omycin 2018 ed 250 MG ([facility] Oral Tablet 250 MG 12:00: Srinivasa phs 00 AM Medical EDT Practice PC) Azithromyci Azithr 10/06/ suspend 2 tabl ets eCW1 n 250 MG omycin 2018 ed on the first ( [facility] Oral Tablet 250 MG 12:00: day, then 1 Tyesha 00 AM tablet daily Medica l EDT for 4 days Practice PC) Azithromyci Azithr 10/06/ suspend 2 tabl ets eCW1 n 250 MG omycin 2018 ed on the first ( [facility] Oral Tablet 250 MG 12:00: day, then 1 Tyesha 00 AM tablet daily Medica l EDT for 4 days Practice PC) Hydrocortis Anusol 07/21/ suspend 1 e CW1 one 2017 ed application ([facility] MG/ML 2.5 % 12:00: to affected Srinivasa phs Topical 00 AM area Medical Cream EDT Practice [Anusol HC] PC) Anusol-HC 2.5 % Hydrocortis Anusol 1.0 suspend Anusol -HC eCW1 2017 {appl ed 2.5 % ([facility] MG/ML 2.5 % 12:00: icati Tyesha Topical 00 AM on_to Medical Cream EDT _affe Practice [Anusol HC] cted_ PC) Anusol-HC area} 2.5 % Hydrocortis Anusol 1.0 suspend Anusol -HC eCW1 2017 {appl ed 2.5 % ([facility] MG/ML 2.5 % 12:00: icati Tyesha Topical 00 AM on_to Medical Cream EDT _affe Practice [Anusol HC] cted_ PC) Anusol-HC area} 2.5 % Hydrocortis Anusol 1.0 suspend Anusol -HC eCW1 2017 {appl ed 2.5 % ([facility] MG/ML 2.5 % 12:00: icati Tyesha Topical 00 AM on_to Medical Cream EDT _affe Practice [Anusol HC] cted_ PC) Anusol-HC area} 2.5 % Hydrocortis Anusol 07/21/ suspend 1 e CW1 one 2017 ed application ([facility] MG/ML 2.5 % 12:00: to affected Srinivasa phs Topical 00 AM area [facility] Anusol-HC 2.5 % Hydrocortis Anusol 1.0 suspend Anusol -HC eCW1 one 2017 {appl ed 2.5 % ([facility] MG/ML 2.5 % 12:00: icati Tyesha Topical 00 AM on_to Medical Cream EDT [facility]) Anusol-HC area} 2.5 % Hydrocortis Anusol 07/21/ suspend 1 e CW1 one 2017 ed application ([facility] MG/ML 2.5 % 12:00: to affected Srinivasa phs Topical 00 AM area Medical Cream ED[facility] Anusol-HC 2.5 % Hydrocortis Anusol 07/21/ suspend 1 e CW1 one 2017 ed application ([facility] MG/ML 2.5 % 12:00: to affected Srinivasa phs Topical 00 AM area Medical Cream EDT Practice [[facility] [facility]) Anusol-HC 2.5 % Hydrocortis Anusol 07/21/ suspend 1 e CW1 one 2017 ed application ([facility] MG/ML 2.5 % 12:00: to affected [facility] Topical 00 AM area Medical [facility] Anusol-HC 2.5 % Lisinopril Lisino 10 1.0 active Lisinopr il eCW1 10 MG Oral pril 2017 {tabl 10 MG ([facility] Tablet 10 MG 12:00: et} 00 AM Medical EDT Practice PC) Lisinopril Lisino 10/16/ active 1 tablet eCW1 10 MG Oral pril 2017 ([facility] Tablet 10 MG 12:00: 00 AM Medical EDT Practice PC) Lisinopril Lisino 1016/ 1.0 active Lisinopr il eCW1 10 MG Oral pril 2017 {tabl 10 MG ([facility] Tablet 10 MG 12:00: et} 00 AM Medical EDT Practice PC) Lisinopril Lisino 10/16/ active 1 tablet eCW1 10 MG Oral pril 2017 ([facility] Tablet 10 MG 12:00: 00 AM Medical EDT Practice PC) Lisinopril Lisino 10/16/ active 1 tablet eCW1 10 MG Oral pril 2017 ([facility] Tablet 10 MG 12:00: 00 AM Medical EDT Practice PC) Lisinopril Lisino 10/16/ 1.0 active Lisinopr il eCW1 10 MG Oral pril 2017 {tabl 10 MG ([facility] Tablet 10 MG 12:00: et} Tyesha 00 AM Medical EDT Practice PC) Lisinopril Lisino 10/16/ active 1 tablet eCW1 10 MG Oral pril 2016 ([facility] Tablet 10 MG 12:00: 00 AM Medical EDT Practice PC) Lisinopril Lisino 10/16/ Tablet Orally 10 MG Orally complet 1 tablet eCW1 10 MG Oral pril 2017 Once a day ed (Sa int Tablet 12:00: 00 AM Medical EDT Practice PC) Lisinopril Lisino 10/16/ active 1 tablet eCW1 10 MG Oral pril 2016 ([facility] Tablet 10 MG 12:00: 00 AM Medical EDT Practice PC) Lisinopril Lisino 10/16/ 1.0 active Lisinopr il eCW1 10 MG Oral pril 2017 {tabl 10 MG ([facility] Tablet 10 MG 12:00: et} 00 AM Medical EDT Practice PC) Lisinopril Lisino 10/16/ active 1 tablet eCW1 10 MG Oral pril 2016 ([facility] Tablet 10 MG 12:00: 00 AM Medical EDT Practice PC) Zantac 150 UNK 0508/ suspend 1 tablet eCW1 MG 2017 ed ([facility] 12:00: Tyesha 00 AM Medical EDT Practice PC) Zantac 150 UNK 08/ suspend 1 tablet eCW1 MG 2017 ed ([facility] 12:00: Tyesha 00 AM Medical EDT Practice PC) Zantac 150 UNK 08/ suspend 1 tablet eCW1 MG 2017 ed ([facility] 12:00: Tyesha 00 AM Medical EDT Practice PC) Ciprofloxac Cipro 08/12/ suspend 1 table t eCW1 in 500 MG 500 MG 2017 ed ([facility] Oral Tablet 12:00: Kenny s [Cipro] 00 AM Medical Cipro 500 EDT Practice MG PC) Zantac 150 UNK 05/08/ 1.0 suspend Zantac 15 0 eCW1 MG 2017 {tabl ed MG ([facility] 12:00: et} Tyesha 00 AM Medical EDT Practice PC) Zantac 150 UNK 08/12/ 1.0 suspend Zantac 15 0 eCW1 MG 2017 {tabl ed MG ([facility] 12:00: et} Tyesha 00 AM Medical EDT Practice PC) Ciprofloxac Cipro 08/12/ suspend 1 table t eCW1 in 500 MG 500 MG 2017 ed ([facility] Oral Tablet 12:00: Kenny s [Cipro] 00 AM Medical Cipro 500 EDT Practice MG PC) Ciprofloxac Cipro 08/12/ 1.0 suspend Cipro 5 00 MG eCW1 in 500 MG 500 MG 2017 {tabl ed ([facility] Oral Tablet 12:00: et} Kenny s [Cipro] 00 AM Medical Cipro 500 EDT Practice MG PC) Ciprofloxac Cipro 08/12/ 1.0 suspend Cipro 5 00 MG eCW1 in 500 MG 500 MG 2017 {tabl ed ([facility] Oral Tablet 12:00: et} Kenny s [Cipro] 00 AM Medical Cipro 500 EDT Practice MG PC) Zantac 150 UNK 08/12/ suspend 1 tablet eCW1 MG 2017 ed ([facility] 12:00: Tyesha 00 AM Medical EDT Practice PC) Ciprofloxac Cipro 08/12/ 1.0 suspend Cipro 5 00 MG eCW1 in 500 MG 500 MG 2017 {tabl ed ([facility] Oral Tablet 12:00: et} Kenny s [Cipro] 00 AM Medical Cipro 500 EDT Practice MG PC) Zantac 150 UNK 0508/ suspend 1 tablet eCW1 MG 2017 ed ([facility] 12:00: Tyesha 00 AM Medical EDT Practice PC) Zantac 150 UNK 05/08/ 1.0 suspend Zantac 15 0 eCW1 MG 2017 {tabl ed MG ([facility] 12:00: et} Tyesha 00 AM Medical EDT Practice PC) Ciprofloxac Cipro 0508/ suspend 1 table t eCW1 in 500 MG 500 MG 2017 ed ([facility] Oral Tablet 12:00: Kenny s [Cipro] 00 AM Medical Cipro 500 EDT Practice MG PC) Ciprofloxac Cipro 08/12/ suspend 1 table t eCW1 in 500 MG 500 MG 2017 ed ([facility] Oral Tablet 12:00: Kenny s [Cipro] 00 AM Medical Cipro 500 EDT Practice MG PC) Ciprofloxac Cipro 1.0 suspend Cipro 5 00 MG eCW1 in 500 MG 500 MG 2017 {tabl ed ([facility] Oral Tablet 12:00: et} Kenny s [Cipro] 00 AM Medical Cipro 500 EDT Practice MG PC) Ciprofloxac Cipro 08/12/ suspend 1 table t eCW1 in 500 MG 500 MG 2017 ed ([facility] Oral Tablet 12:00: Kenny s [Cipro] 00 AM Medical Cipro 500 EDT Practice MG PC) Zantac 150 UNK 1.0 suspend Zantac 15 0 eCW1 MG 2017 {tabl ed MG ([facility] 12:00: et} Tyesha 00 AM Medical EDT Practice PC) Citalopram Celexa .0 active Celexa 2 0 mg eCW1 20 MG Oral 20 mg 2016 {tabl ([facility] Tablet 12:00: et} Tyesha [Celexa] 00 AM Medical Celexa 20 EDT Practice mg PC) Lorazepam 2 Loraze 11/08/ Tablet Orally 2 MG Orally complet 1 tablet eCW1 MG Oral ap 2016 twice at day ed (Shahzad nt Tablet 12:00: PRN Tyesha 00 AM Medical EDT Practice PC) Citalopram Celexa 1.0 suspend Celexa 20 mg eCW1 20 MG Oral 20 mg 2016 {tabl ed ([facility] Tablet 12:00: et} Tyesha [Celexa] 00 AM Medical Celexa 20 EDT Practice mg PC) Lorazepam 2 Loraze 11/08/ active 1 table t eCW1 MG Oral ap 2 2016 ([facility] Tablet MG 12:00: Tyesha 00 AM Medical EDT Practice PC) Citalopram Celexa 1.0 suspend Celexa 20 mg eCW1 20 MG Oral 20 mg 2016 {tabl ed ([facility] Tablet 12:00: et} Tyesha [Celexa] 00 AM Medical Celexa 20 EDT Practice mg PC) Lorazepam 2 Loraze 11/08/ active 1 table t eCW1 MG Oral ap 2 2016 ([facility] Tablet MG 12:00: Tyesha 00 AM Medical EDT Practice ) Lorazepam 2 Loraze 11/08/ active 1 table t eCW1 MG Oral ap 2 2016 ([facility] Tablet MG 12:00: Tyesha 00 AM Medical EDT Practice PC) Lorazepam 2 Loraze 11/08/ 1.0 active Lorazep am 2 eCW1 MG Oral ap 2 2016 {tabl MG ([facility] Tablet MG 12:00: et} Tyesha 00 AM Medical EDT Practice ) Lorazepam 2 Loraze 11/08/ active 1 table t eCW1 MG Oral ap 2 2016 ([facility] Tablet MG 12:00: Tyesha 00 AM Medical EDT Practice ) Lorazepam 2 Loraze 11/08/ 1.0 active Lorazep am 2 eCW1 MG Oral ap 2 2016 {tabl MG ([facility] Tablet MG 12:00: et} Tyesha 00 AM Medical EDT Practice ) Lorazepam 2 Loraze 11/08/ Tablet Orally 2 MG Orally complet 1 tablet eCW1 MG Oral ap 2016 twice at day ed (Shahzad nt Tablet 12:00: PRN Tyesha 00 AM Medical EDT Practice ) Citalopram Celexa 11/08/ active 1 tablet eCW1 20 MG Oral 20 mg 2016 ([facility] Tablet 12:00: Tyesha [Celexa] 00 AM Medical Celexa 20 EDT Practice [facility]) Citalopram Celexa 11/08/ 1.0 active Celexa 2 0 mg eCW1 20 MG Oral 20 mg 2016 {tabl ([facility] Tablet 12:00: et} Tyesha [Celexa] 00 AM Medical Celexa 20 EDT Practice [facility]) Lorazepam 2 Loraze 11/08/ active 1 table t eCW1 MG Oral ap 2 2016 ([facility] Tablet MG 12:00: Tyesha 00 AM Medical EDT Practice ) Citalopram Celexa 11/08/ suspend 1 table t eCW1 20 MG Oral 20 MG 2016 ed ([facility] Tablet 12:00: Tyesha [Celexa] 00 AM Medical Celexa 20 EDT Practice [facility]) Citalopram Celexa 11/08/ suspend 1 table t eCW1 20 MG Oral 20 MG 2016 ed ([facility] Tablet 12:00: Tyesha [Celexa] 00 AM Medical Celexa 20 EDT Practice MG PC) Lorazepam 2 Loraze 11/08/ 1.0 active Lorazep am 2 eCW1 MG Oral ap 2 2016 {tabl MG ([facility] Tablet MG 12:00: et} Tyesha 00 AM Medical EDT Practice PC) Lorazepam 2 Loraze 11/08/ active 1 table t eCW1 MG Oral ap 2 2016 ([facility] Tablet MG 12:00: Tyesha 00 AM Medical EDT Practice PC) Lorazepam 2 Loraze 11/08/ Tablet Orally 2 MG Orally complet 1 tablet eCW1 MG Oral ap 2016 twice at day ed (Shahzad nt Tablet 12:00: PRN Tyesha 00 AM Medical EDT Practice PC) Lorazepam 2 Loraze 11/08/ active 1 table t eCW1 MG Oral ap 2 2016 ([facility] Tablet MG 12:00: Tyesha 00 AM Medical EDT Practice PC) Lorazepam 2 Loraze 11/08/ active 1 table t eCW1 MG Oral ap 2 2016 ([facility] Tablet MG 12:00: Tyesha 00 AM Medical EDT Practice PC) Lorazepam 2 Loraze 11/08/ active 1 table t eCW1 MG Oral ap 2 2016 ([facility] Tablet MG 12:00: Tyesha 00 AM Medical EDT Practice PC) Lorazepam 2 Loraze 11/08/ 1.0 active Lorazep am 2 eCW1 MG Oral ap 2 2016 {tabl MG ([facility] Tablet MG 12:00: et} Tyesha 00 AM Medical EDT Practice PC) Citalopram Celexa 11/08/ active 1 tablet eCW1 20 MG Oral 20 mg 2016 ([facility] Tablet 12:00: Tyesha [Celexa] 00 AM Medical Celexa 20 EDT Practice mg PC) Citalopram Celexa 11/08/ active 1 tablet eCW1 20 MG Oral 20 mg 2016 ([facility] Tablet 12:00: Tyesha [Celexa] 00 AM Medical Celexa 20 EDT Practice mg PC) 24 HR Toprol 05/03/ 1.0 active Toprol XL 50 eCW1 metoprolol XL 50 2016 {tabl MG ([facility] succinate MG 12:00: et} Tyesha 50 MG 00 AM Medical Extended EST Practice Release PC) Oral Tablet [Toprol] Toprol XL 50 MG 24 HR Toprol 05/03/ Tablet Orally 50 MG Orally complet 1 tablet eCW1 metoprolol XL 2016 Extended Once a day ed ([facility] succinate 12:00: Release Garrick hs 50 MG 00 AM 24 Hour Medical Extended EST Practice Release PC) Oral Tablet [Toprol] Toprol XL 24 HR Toprol 05/03/ active 1 tablet eCW1 metoprolol XL 50 2016 ([facility] succinate MG 12:00: Tyesha 50 MG 00 AM Medical Extended EST Practice Release PC) Oral Tablet [Toprol] Toprol XL 50 MG 24 HR Toprol 05/03/ 1.0 active Toprol XL 50 eCW1 metoprolol XL 50 2016 {tabl MG ([facility] succinate MG 12:00: et} Tyesha 50 MG 00 AM Medical Extended EST Practice Release PC) Oral Tablet [Toprol] Toprol XL 50 MG 24 HR Toprol 05/03/ active 1 tablet eCW1 metoprolol XL 50 2016 ([facility] succinate MG 12:00: Tyesha 50 MG 00 AM Medical Extended EST Practice Release PC) Oral Tablet [Toprol] Toprol XL 50 MG 24 HR Toprol 05/03/ active 1 tablet eCW1 metoprolol XL 50 2015 ([facility] succinate MG 12:00: Tyesha 50 MG 00 AM Medical Extended EST Practice Release PC) Oral Tablet [Toprol] Toprol XL 50 MG 24 HR Toprol 05/03/ active 1 tablet eCW1 metoprolol XL 50 2015 ([facility] succinate MG 12:00: Tyesha 50 MG 00 AM Medical Extended EST Practice Release PC) Oral Tablet [Toprol] Toprol XL 50 MG 24 HR Toprol 05/03/ active 1 tablet eCW1 metoprolol XL 50 2015 ([facility] succinate MG 12:00: Tyesha 50 MG 00 AM Medical Extended EST Practice Release PC) Oral Tablet [Toprol] Toprol XL 50 MG Atorvastati Tablet Orally 20 MG Orally complet 1 tablet eCW1 n Calcium Once a day ed (Shahzad nt [facility] Medical Practice ) 24 HR Metopr Tablet Orally 50 MG Orally complet 1 tablet eCW1 metoprolol olol Extended Once a day ed ([facility] succinate Succin Release Garrick hs 50 MG ate ER 24 Hour Medical Extended Practice Release PC) Oral Tablet Metoprolol Succinate ER Amlodipine Amlodi Tablet Orally 5 MG Orally complet 1 tablet eCW1 5 MG Oral pine Once a day ed (Shahzad nt Tablet Besyla Tyesha Amlodipine te Medical Besylate Practice PC) Diclofenac Diclof Tablet Orally 50 MG Orally complet 1 tablet eCW1 Potassium enac Twice a day ed (Sa int 50 MG Oral Potass Tyesha Tablet ium Medical Practice PC) atorvastati Atorva active 1 tablet eCW1 n 20 MG statin ([facility] Oral Tablet Calciu Kenny s Atorvastati m 20 Medical n Calcium mg Practice 20 mg PC) 24 HR Metopr active 1 tablet eCW1 metoprolol olol ([facility] succinate Succin Tyesha 50 MG ate ER Medical Extended 50 MG Practice Release PC) Oral Tablet Metoprolol Succinate ER 50 MG Lisinopril Lisino suspend 1 tablet eCW1 20 MG Oral pril ed ([facility] Tablet 20 MG T[facility] Medical Practice PC) 24 HR Metopr active 1 tablet eCW1 metoprolol olol ([facility] succinate Succin Tyesha 50 MG ate ER Medical Extended 50 MG Practice Release PC) Oral Tablet Metoprolol Succinate ER 50 MG atorvastati Atorva 1.0 active Atorvasta tin eCW1 n 20 MG statin {tabl Calcium 20 (Sa int Oral Tablet Calciu et} mg Kenny s Atorvastati m 20 Medical n Calcium mg Practice 20 mg PC) Escitalopra Lexapr 1.0 suspend Lexapro 5 MG eCW1 m 5 MG Oral o 5 MG {tabl ed (Chauncey t Tablet et} Tyesha [Lexapro] Medical Lexapro 5 Practice MG PC) Escitalopra Lexapr suspend 1 tablet eCW1 m 5 MG Oral o 5 MG ed ([facility] Tablet Tyesha [Lexapro] Medical Lexapro 5 Practice MG PC) Amlodipine Amlodi active 1 tablet e CW1 5 MG Oral pine ([facility] Tablet Besyla Tyesha Amlodipine te 5 Medical Besylate 5 MG Practice MG PC) Escitalopra Lexapr 1.0 suspend Lexapro 5 MG eCW1 m 5 MG Oral o 5 MG {tabl ed (Chauncey t Tablet et} Tyesha [Lexapro] Medical Lexapro 5 Practice MG PC) Diclofenac Diclof 1.0 suspend Diclofena c eCW1 Potassium enac {tabl ed Potassium 50 ( [facility] 50 MG Oral Potass et} MG Tyesha Tablet ium 50 Medical MG Practice PC) 24 HR Metopr active 1 tablet eCW1 metoprolol olol ([facility] succinate Succin Tyesha 50 MG ate ER Medical Extended 50 MG Practice Release PC) Oral Tablet Metoprolol Succinate ER 50 MG Lisinopril Lisino 1.0 suspend Lisinopri l eCW1 20 MG Oral pril {tabl ed 20 MG ([facility] Tablet 20 MG et} T[facility] Medical Practice PC) Diclofenac Diclof active 1 tablet e CW1 Potassium enac ([facility] 50 MG Oral Potass Tyesha Tablet ium 50 Medical MG Practice PC) Amlodipine Amlodi active 1 tablet e CW1 5 MG Oral pine ([facility] Tablet Besyla Tyesha Amlodipine te 5 Medical Besylate 5 MG Practice MG PC) Diclofenac Diclof 1.0 active Diclofenac eCW1 Potassium enac {tabl Potassium 50 ( [facility] 50 MG Oral Potass et} MG Tyesha Tablet ium 50 Medical MG Practice PC) 24 HR Metopr 1.0 active Metoprolol eCW1 metoprolol olol {tabl Succinate ER ([facility] succinate Succin et} 50 MG Tyesha 50 MG ate ER Medical Extended 50 MG Practice Release PC) Oral Tablet Metoprolol Succinate ER 50 MG atorvastati Atorva active 1 tablet eCW1 n 20 MG statin ([facility] Oral Tablet Calciu Kenny s Atorvastati m 20 Medical n Calcium mg Practice 20 mg PC) Lisinopril Lisino active 1 tablet e CW1 20 MG Oral pril ([facility] Tablet 20 MG Tyesha Medical Practice PC) Diclofenac Diclof active 1 tablet e CW1 Potassium enac ([facility] 50 MG Oral Potass Tyesha Tablet ium 50 Medical MG Practice PC) 24 HR Metopr active 1 tablet eCW1 metoprolol olol ([facility] succinate Succin Tyesha 50 MG ate ER Medical Extended 50 MG Practice Release PC) Oral Tablet Metoprolol Succinate ER 50 MG Amlodipine Amlodi 1.0 active Amlodipine eCW1 5 MG Oral pine {tabl Besylate 5 (Sa int Tablet Besyla et} MG Tyesha Amlodipine te 5 Medical Besylate 5 MG Practice MG PC) 24 HR Metopr 1.0 active Metoprolol eCW1 metoprolol olol {tabl Succinate ER ([facility] succinate Succin et} 50 mg Tyesha 50 MG ate ER Medical Extended 50 mg Practice Release PC) Oral Tablet Metoprolol Succinate ER 50 mg Escitalopra Lexapr 1.0 suspend Lexapro 5 MG eCW1 m 5 MG Oral o 5 MG {tabl ed (Chauncey t Tablet et} Tyesha [Lexapro] Medical Lexapro 5 Practice MG PC) Escitalopra Lexapr suspend 1 tablet eCW1 m 5 MG Oral o 5 MG ed ([facility] Tablet Tyesha [Lexapro] Medical Lexapro 5 Practice MG PC) Lisinopril Lisino 1.0 suspend Lisinopri l eCW1 20 MG Oral pril {tabl ed 20 MG ([facility] Tablet 20 MG et} [facility] PC) atorvastati Atorva 1.0 active Atorvasta tin eCW1 n 20 MG statin {tabl Calcium 20 (Sa int Oral Tablet Calciu et} mg Kenny s Atorvastati m 20 Medical n Calcium mg Practice 20 mg PC) Diclofenac Diclof active 1 tablet e CW1 Potassium enac ([facility] 50 MG Oral Potass Tyesha Tablet ium 50 Medical MG Practice PC) Amlodipine Amlodi 1.0 active Amlodipine eCW1 5 MG Oral pine {tabl Besylate 5 (Sa int Tablet Besyla et} mg Tyesha Amlodipine te 5 Medical Besylate 5 mg Practice mg PC) Amlodipine Amlodi active 1 tablet e CW1 5 MG Oral pine ([facility] Tablet Besyla Tyesha Amlodipine te 5 Medical Besylate 5 MG Practice MG PC) atorvastati Atorva active 1 tablet eCW1 n 20 MG statin ([facility] Oral Tablet Calciu Kenny s Atorvastati m 20 Medical n Calcium mg Practice 20 mg PC) 24 HR Metopr active 1 tablet eCW1 metoprolol olol ([facility] succinate Succin Tyesha 50 MG ate ER Medical Extended 50 MG Practice Release PC) Oral Tablet Metoprolol Succinate ER 50 MG Lisinopril Lisino 1.0 suspend Lisinopri l eCW1 20 MG Oral pril {tabl ed 20 MG ([facility] Tablet 20 MG et} [facility] Practice PC) Escitalopra Lexapr 1.0 suspend Lexapro 5 MG eCW1 m 5 MG Oral o 5 MG {tabl ed (Chauncey t Tablet et} Tyesha [Lexapro] Medical Lexapro 5 Practice MG PC) Amlodipine Amlodi active 1 tablet e CW1 5 MG Oral pine ([facility] Tablet Besyla Tyesha Amlodipine te 5 Medical Besylate 5 MG Practice MG PC) atorvastati Atorva active 1 tablet eCW1 n 20 MG statin ([facility] Oral Tablet Calciu Kenny s Atorvastati m 20 Medical n Calcium mg Practice 20 mg PC) atorvastati Atorva 1.0 active Atorvasta tin eCW1 n 20 MG statin {tabl Calcium 20 (Sa int Oral Tablet Calciu et} mg Kenny darnell Atorvastati m 20 Medical n Calcium mg Practice 20 mg PC) atorvastati Atorva 1.0 active Atorvasta tin eCW1 n 20 MG statin {tabl Calcium 20 (Sa int Oral Tablet Calciu et} mg Kenny darnell Atorvastati m 20 Medical n Calcium mg Practice 20 mg PC) Diclofenac Diclof active 1 tablet e CW1 Potassium enac ([facility] 50 MG Oral Potass Tyesha Tablet ium 50 Medical MG Practice PC) atorvastati Atorva active 1 tablet eCW1 n 20 MG statin ([facility] Oral Tablet Calciu Kenny s Atorvastati m 20 Medical n Calcium mg Practice 20 mg PC) Escitalopra Lexapr suspend 1 tablet eCW1 m 5 MG Oral o 5 MG ed ([facility] Tablet Tyesha [Lexapro] Medical Lexapro 5 Practice MG PC) 24 HR Metopr active 1 tablet eCW1 metoprolol olol ([facility] succinate Succin Tyesha 50 MG ate ER Medical Extended 50 MG Practice Release PC) Oral Tablet Metoprolol Succinate ER 50 MG Escitalopra Lexapr suspend 1 tablet eCW1 m 5 MG Oral o 5 MG ed ([facility] Tablet Tyesha [Lexapro] Medical Lexapro 5 Practice MG PC) Diclofenac Diclof active 1 tablet e CW1 Potassium enac ([facility] 50 MG Oral Potass Tyesha Tablet ium 50 Medical MG Practice PC) 24 HR Metopr 1.0 active Metoprolol eCW1 metoprolol olol {tabl Succinate ER ([facility] succinate Succin et} 50 mg Tyesha 50 MG ate ER Medical Extended 50 mg Practice Release PC) Oral Tablet Metoprolol Succinate ER 50 mg Amlodipine Amlodi 1.0 active Amlodipine eCW1 5 MG Oral pine {tabl Besylate 5 (Sa int Tablet Besyla et} mg Tyesha Amlodipine te 5 Medical Besylate 5 mg Practice mg PC) Amlodipine Amlodi active 1 tablet e CW1 5 MG Oral pine ([facility] Tablet Besyla Tyesha Amlodipine te 5 Medical Besylate 5 MG Practice MG PC) Diclofenac Diclof 1.0 active Diclofenac eCW1 Potassium enac {tabl Potassium 50 ( [facility] 50 MG Oral Potass et} MG Tyesha Tablet ium 50 Medical MG Practice PC) Escitalopra Lexapr suspend 1 tablet eCW1 m 5 MG Oral o 5 MG ed ([facility] Tablet Tyesha [Lexapro] Medical Lexapro 5 Practice MG PC) Lisinopril Lisino 1.0 suspend Lisinopri l eCW1 20 MG Oral pril {tabl ed 20 MG ([facility] Tablet 20 MG et} [facility] Medical Practice PC) Lisinopril Lisino suspend 1 tablet eCW1 20 MG Oral pril ed ([facility] Tablet 20 MG [facility] Medical Practice PC) Diclofenac Diclof 1.0 suspend Diclofena c eCW1 Potassium enac {tabl ed Potassium 50 ( [facility] 50 MG Oral Potass et} MG Tyesha Tablet ium 50 Medical MG Practice PC) Amlodipine Amlodi 1.0 active Amlodipine eCW1 5 MG Oral pine {tabl Besylate 5 (Sa int Tablet Besyla et} mg Tyesha Amlodipine te 5 Medical Besylate 5 mg Practice mg PC) Lisinopril Lisino active 1 tablet e CW1 20 MG Oral pril ([facility] Tablet 20 MG [facility] Medical Practice PC) 24 HR Metopr 1.0 active Metoprolol eCW1 metoprolol olol {tabl Succinate ER ([facility] succinate Succin et} 50 mg Tyesha 50 MG ate ER Medical Extended 50 mg Practice Release PC) Oral Tablet Metoprolol Succinate ER 50 mg atorvastati Atorva active 1 tablet eCW1 n 20 MG statin ([facility] Oral Tablet Calciu Kenny s Atorvastati m 20 Medical n Calcium MG Practice 20 MG PC) Lisinopril Lisino suspend 1 tablet eCW1 20 MG Oral pril ed ([facility] Tablet 20 MG T[facility] Medical Practice PC) Insurance Providers Payer name Policy type Policy ID Covered Covered democrat's Policy P monty / Coverage democrat ID relationship to [place] Inf ormation type [place] MEDICAID [id number] [facility] [id number] MEDICARE ADV PLAN W [id number] [place] [id number] MEDICARE OP Problems, Conditions, and Diagnoses Code Display Name Description Problem Type Effective Data Dates Source(s) R07.9 [id number] Chest pain at rest Problem 10/06/2018 eCW1 ( [facility] 12:00:00 AM T[facility] EDT Medical Practice PC) R07.9 [id number] Chest pain at rest Problem 10/06/2018 eCW1 ( [facility] 12:00:00 AM T[facility]ha EDT Medical Practice PC) F33.0 [id number] 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/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 Medical disorder Practice PC) F33.0 [id number] 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/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 Medical disorder Practice PC) H65.01 [id number] Right acute serous Problem 11/02/2017 eCW1 ( [facility] otitis media, 12:00:00 AM Tyesha recurrence not EDT Medical specified Practice PC) H65.01 [id number] Right acute serous Problem 11/02/2017 eCW1 ( [facility] otitis media, 12:00:00 AM Tyesha recurrence not EDT Medical specified Practice PC) H93.11 [id number] Tinnitus of right Problem 10/06/2017 eCW1 ([facility] ear 12:00:00 AM Tyesha EDT Medical Practice PC) H93.11 [id number] Tinnitus of right Problem 10/06/2017 eCW1 ([facility] ear 12:00:00 AM Tyesha EDT Medical Practice PC) F41.9 [id number] Anxiety disorder, Problem 07/21/2017 eCW1 ([facility] F32.9 86040102 Major depressive Problem 07/21/2017 eCW1 (Sa int disorder, single 12:00:00 AM Tyesha episode, EDT Medical unspecified Practice PC) Z12.4 [id number] Cervical cancer Problem 07/21/2017 eCW1 (Shahzad nt screening 12:00:00 AM Tyesha EDT Medical Practice PC) F32.9 72987565 Major depressive Problem 07/21/2017 eCW1 (Sa int disorder, single 12:00:00 AM Tyesha episode, EDT Medical unspecified Practice PC) Z12.4 102156912 Cervical cancer Problem 07/21/2017 eCW1 (Shahzad nt screening 12:00:00 AM Tyesha EDT Medical Practice PC) E78.5 Hyperlipidaemia Hyperlipemia Problem 06/23/2017 eCW1 (S aint 12:00:00 AM [facility]) M75.51 [id number] Bursitis of right Problem 06/23/2017 eC W1 ([facility] shoulder 12:00:00 AM [facility]) M75.51 [id number] Bursitis of right Problem 06/23/2017 eC W1 ([facility] shoulder 12:00:00 AM [facility]) I95.2 [id number] Hypotension due to Problem 03/31/2017 eCW1 ( [facility] medication 12:00:00 AM [facility] Medical [facility]) I95.2 [id number] Hypotension due to Problem 03/31/2017 eCW1 ( [facility] medication 12:00:00 AM [facility] Medical [facility]) R42 [id number] Dizziness Problem 01/20/2017 eCW1 ([facility] 12:00:00 AM [facility]) R42 [id number] Dizziness Problem 01/20/2017 eCW1 ([facility] 12:00:00 AM [facility]) I83.93 [id number] Varicose veins of Problem 10/28/2016 eCW1 ([facility] both lower 12:00:00 AM [facility] extremities [facility] Medical [facility]) Z12.31 636257295 Breast cancer Problem 10/28/2016 eCW1 ([facility] screening 12:00:00 AM [facility] Medical [facility]) I83.93 [id number] Varicose veins of Problem 10/28/2016 eCW1 ([facility] both lower 12:00:00 AM [facility] extremities [facility] Medical [facility]) Z12.31 [id number] Breast cancer Problem 10/28/2016 eCW1 ([facility] screening 12:00:00 AM [facility] Medical [facility]) I10 [id number] Essential Problem 03/31/2016 eCW1 ([facility] (primary) 12:00:00 AM [facility] Medical [facility]) Z00.00 480851019 Well adult exam Problem 10/11/2015 eCW1 (Shahzad nt 12:00:00 AM [facility]) Z00.00 937925014 Well adult exam Problem 10/11/2015 eCW1 (Shahzad nt 12:00:00 AM [facility]) R53.83 53774372 Fatigue Problem 07/26/2015 eCW1 ([facility] 12:00:00 AM [facility]) E78.5 Hyperlipidemia Hyperlipidemia Problem 07/26/2015 eCW1 ( [facility] 12:00:00 AM [facility]) F41.9 Anxiety Anxiety Problem 07/26/2015 eCW1 ([facility] 12:00:00 AM [facility]) E11.9 Diabetes mellitus Diabetes Problem 07/26/2015 eCW1 (S aint without complication 12:00:00 AM [facility]) I10 Hypertension Hypertension Problem 07/26/2015 eCW1 (Chauncey t 12:00:00 AM [facility]) R53.83 [id number] Fatigue Problem 07/26/2015 eCW1 ([facility] 12:00:00 AM [facility]) E78.5 Hyperlipidemia Hyperlipidemia Problem 07/26/2015 eCW1 ( [facility] 12:00:00 AM [facility]) F41.9 Anxiety Anxiety Problem 07/26/2015 eCW1 ([facility] 12:00:00 AM [facility]) E11.9 Diabetes mellitus Diabetes Problem 07/26/2015 eCW1 (S aint without complication 12:00:00 AM [facility]) I10 Hypertension Hypertension Problem 07/26/2015 eCW1 (Chauncey t 12:00:00 AM [facility]) E78.5 [id number] HLD Problem 05/01/2015 eCW1 ([facility] (hyperlipidemia) 12:00:00 AM [facility]) I10 [id number] HBP (high blood Problem 05/01/2015 eCW1 (Shahzad nt pressure) 12:00:00 AM [facility]) I83.93 Asymptomatic varicose Varicose veins of Problem eCW1 ([facility] veins of bilateral both lower [facility] lower extremities extremities Medica l Practice ) Z00.00 Encounter for general Well adult exam Problem eCW1 ([facility] adult medical [facility] examination without Medic al abnormal findings Practic e PC) I10 Essential (primary) HBP (high blood Problem eCW1 ([facility] hypertension pressure) [facility]) E11.9 Type 2 diabetes Diabetes Problem eCW1 (Shahzad nt mellitus without [facility] complications [facility]) R53.83 Other fatigue Fatigue Problem eCW1 ([facility]) Z12.4 Encounter for Cervical cancer Problem eCW1 ( [facility] screening for screening [facility] malignant neoplasm of Med ical cervix [facility]) F32.9 Major depressive Major depressive Problem eC W1 ([facility] disorder, single disorder, single Melody sephs episode, unspecified episode, [facility] ) M75.51 Bursitis of right Bursitis of right Problem eCW1 ([facility] shoulder shoulder [facility]) E78.5 Hyperlipidemia, Hyperlipemia Problem eCW1 (S aint [facility] hospital[facility]) H65.01 Acute serous otitis Right acute serous Problem eCW1 ([facility] media, right ear otitis media, [facility] recurrence not Medical specified Practice ) F41.9 Anxiety disorder, Anxiety disorder, Problem eCW1 ([facility] unspecified unspecified [facility]) H93.11 Tinnitus, right ear Tinnitus of right Problem eCW1 ([facility] ear [facility]) R42 Dizziness and Dizziness Problem eCW1 ([facility] giddiness [facility]) I95.2 Hypotension due to Hypotension due to Problem eCW1 ([facility] drugs medication [facility]) Z12.31 Encounter for Breast cancer Problem eCW1 ( int screening mammogram screening [facility] for malignant Medical neoplasm of breast Practi [facility]) I83.93 Asymptomatic varicose Varicose veins of Problem eCW1 ([facility] veins of bilateral both lower [facility] lower extremities extremities Medica l [facility]) Z00.00 Encounter for general Well adult exam Problem eCW1 ([facility] adult [facility] examination without Medic al abnormal findings Practic e ) I10 Essential (primary) HBP (high blood Problem eCW1 ([facility] hypertension pressure) [facility]) E11.9 Type 2 diabetes Diabetes Problem eCW1 ([facility] nt mellitus without [facility] complications [facility]) R53.83 Other fatigue Fatigue Problem eCW1 ([facility]) Z12.4 Encounter for Cervical cancer Problem eCW1 ( [facility] screening for screening [facility] malignant neoplasm of Med ical cervix [facility]) F32.9 Major depressive Major depressive Problem eC W1 ([facility] disorder, single disorder, single Melody sephs episode, unspecified episode, [facility] unspecified Practice ) M75.51 Bursitis of right Bursitis of right Problem eCW1 ([facility] shoulder shoulder [facility]) E78.5 Hyperlipidemia, Hyperlipemia Problem [facility]CW1 ([facility] H65.01 Acute serous otitis Right acute serous Problem eCW1 ([facility] media, right ear otitis media, [facility] recurrence not Medical specified Practice [facility]) F41.9 Anxiety disorder, Anxiety disorder, Problem eCW1 ([facility] unspecified [facility]) H93.11 Tinnitus, right ear Tinnitus of right Problem eCW1 ([facility] ear [facility]) R42 Dizziness and Dizziness Problem eCW1 ([facility] giddiness [facility]) I95.2 Hypotension due to Hypotension due to Problem eCW1 ([facility] drugs medication [facility]) Z12.31 Encounter for Breast cancer Problem eCW1 ( int screening mammogram screening Garrick hs for malignant Medical neoplasm of breast Practi [facility]) I83.93 Asymptomatic varicose Varicose veins of Problem eCW1 ([facility] veins of bilateral both lower [facility] lower extremities extremities Medica l Practice ) Z00.00 Encounter for general Well adult exam Problem eCW1 ([facility] adult [facility] examination without Medic al abnormal findings Practic e ) I10 Essential (primary) HBP (high blood Problem eCW1 ([facility] hypertension pressure) [facility]) E11.9 Type 2 diabetes Diabetes Problem eCW1 (Shahzad nt mellitus without [facility] complications [facility]) R53.83 Other fatigue Fatigue Problem eCW1 ([facility]) Z12.4 Encounter for Cervical cancer Problem eCW1 ( [facility] screening for screening [facility] malignant neoplasm of Med ical cervix Practice ) F32.9 Major depressive Major depressive Problem eC W1 ([facility] disorder, single disorder, single Melody sephs episode, unspecified episode, [facility] unspecified Practice ) M75.51 Bursitis of right Bursitis of right Problem eCW1 ([facility] shoulder [facility]) E78.5 Hyperlipidemia, Hyperlipemia Problem [facility] ([facility] H65.01 Acute serous otitis Right acute serous Problem eCW1 ([facility] media, right ear otitis media, Gar[facility] hs recurrence not Medical specified Practice ) F41.9 Anxiety disorder, Anxiety disorder, Problem eCW1 ([facility] unspecified [facility]) H93.11 Tinnitus, right ear Tinnitus of right Problem eCW1 ([facility] ear [facility]) R42 Dizziness and Dizziness Problem eCW1 ([facility] giddiness [facility]) I95.2 Hypotension due to Hypotension due to Problem eCW1 ([facility] drugs medication [facility]) Z12.31 Encounter for Breast cancer Problem eCW1 ( int screening mammogram screening [facility] for malignant [facility]) I83.93 Asymptomatic varicose Varicose veins of Problem eCW1 ([facility] veins of bilateral both lower [facility] lower extremities extremities Medica l [facility]) Z00.00 Encounter for general Well adult exam Problem eCW1 ([facility] adult [facility] examination without Medic al abnormal findings Practic e ) I10 Essential (primary) HBP (high blood Problem eCW1 ([facility] hypertension pressure) [facility]) E11.9 Type 2 diabetes Diabetes Problem eCW1 (Shahzad nt mellitus without [facility] complications [facility]) R53.83 Other fatigue Fatigue Problem eCW1 ([facility]) Z12.4 Encounter for Cervical cancer Problem eCW1 ( [facility] screening for screening [facility] malignant neoplasm of Med ical cervix [facility]) F32.9 Major depressive Major depressive Problem eC W1 ([facility] disorder, single disorder, single Melody sephs episode, unspecified episode, [facility] ) M75.51 Bursitis of right Bursitis of right Problem eCW1 ([facility] shoulder shoulder [facility]) E78.5 Hyperlipidemia, Hyperlipemia Problem eCW1 (S aint [facility]) H65.01 Acute serous otitis Right acute serous Problem eCW1 ([facility] media, right ear otitis media, Garrick hs recurrence not Medical specified Practice ) F34.1 Dysthymic disorder Dysthymia Diagnosis eCW1 ( [facility]) F41.9 Anxiety disorder, Anxiety disorder, Problem eCW1 ([facility] H93.11 Tinnitus, right ear Tinnitus of right Problem eCW1 ([facility] ear [facility]) R42 Dizziness and Dizziness Problem eCW1 ([facility] giddiness [facility]) I95.2 Hypotension due to Hypotension due to Problem eCW1 ([facility] drugs medication [facility]) Z12.31 Encounter for Breast cancer Problem eCW1 ( int screening mammogram screening Garrick hs for malignant Medical neoplasm of breast Practi [facility]) M25.611 Stiffness of right STIFFNESS OF RIGHT Diagnosis 9 [facility] shoulder, not SHOULDER, NOT 10:03:00 AM [facility] M25.511 Pain in right PAIN IN RIGHT Diagnosis 07/28/2018 [facility] shoulder SHOULDER 10:03:00 AM [facility] Surgeries/Procedures Procedure Description Date Indications Data Source(s) HANDLG&/OR CONVEY OF 06/14/2019 eCW1 (S aint SPEC FOR TR OFFICE TO 12:00:00 AM [facility] LAB EDT [facility]) COLLECTION VENOUS 03/01/2019 eCW1 (Chauncey t BLOOD VENIPUNCTURE 12:00:00 AM [facility] EST [facility]) INFLUENZA VIRUS 02/01/2019 eCW1 ([facility] VACCINE SPLIT VIRUS 12:00:[address] [facility] 3/> YRS IM EDT Practice ) PNEUMOCOCCAL CONJ 02/01/2019 eCW1 (Chauncey t VACCINE 13 VALENT IM 12:00:[address] [facility] EDT [facility]) IMADM PRQ ID SUBQ/IM 02/01/2019 eCW1 (S aint NJXS 1 VACCINE 12:00:00 AM [facility] EDT [facility]) HANDLG&/OR CONVEY OF 04/13/2018 eCW1 (S aint SPEC FOR TR OFFICE TO 12:00:00 AM [facility] LAB EST [facility]) COLLECTION VENOUS 04/13/2018 eCW1 (Chauncey t BLOOD VENIPUNCTURE 12:00:00 AM [facility] EST [facility]) OFFICE OUTPATIENT 04/13/2018 eCW1 (Chauncey t VISIT 15 MINUTES 12:00:00 AM [facility] ica EST [facility]) No Known procedures No Known procedures e CW1 ([facility]) No Known procedures No Known procedures e CW1 ([facility]) No Known procedures No Known procedures e CW1 ([facility]) No Known procedures No Known procedures e CW1 ([facility]) No Known procedures No Known procedures e CW1 ([facility]) No Known procedures No Known procedures e CW1 ([facility]) Social History Code Duration Value Status Description Data Source(s ) Smoking Unknown if ever completed Unknown if ever eCW1 ([facility] [place] smoked [facility]) Smoking Unknown if ever completed Unknown if ever eCW1 ([facility] [place] smoked smoked [facility]) Smoking Unknown if ever completed Unknown if ever eCW1 ([facility] [place] smoked smoked [facility]) Smoking Unknown if ever completed Unknown if ever eCW1 ([facility] [place] smoked smoked [facility]) Smoking Unknown if ever completed Unknown if ever eCW1 ([facility] [place] smoked smoked [facility]) Smoking Unknown if ever completed Unknown if ever eCW1 ([facility] [place] smoked smoked [facility]) Smoking Unknown if ever completed Unknown if ever eCW1 ([facility] [place] smoked smoked [facility]) Smoking Unknown if ever completed Unknown if ever eCW1 ([facility] [place] smoked smoked [facility]) Smoking Unknown if ever completed Unknown if ever eCW1 ([facility] [place] smoked smoked [facility]) Smoking Unknown if ever completed Unknown if ever [facility] [place] smoked smoked [facility] Smoking Unknown if ever completed Unknown if ever eCW1 ([facility] [place] smoked smoked [facility]) Smoking Unknown if ever completed Unknown if ever eCW1 ([facility] [place] smoked smoked [facility]) Smoking Unknown if ever completed Unknown if ever eCW1 ([facility] [place] smoked smoked [facility]) Smoking Unknown if ever completed Unknown if ever eCW1 ([facility] [place] smoked smoked [facility]) Smoking Unknown if ever completed Unknown if ever eCW1 ([facility] [place] smoked smoked [facility]) Vital Signs ID Date Data Source UNK Name Value Range Interpretation Code Description Data Source(s) Diastolic blood 90 mm[Hg] 90 mm[Hg] eCW1 ([facility]) Systolic blood 130 mm[Hg] 130 mm[Hg] eCW1 ([facility] t pressure [facility]) Body temperature 97.3 [degF] 97.3 [degF] eCW1 ( [facility] Body mass index 24.14 kg/m2 24.14 kg/m2 eCW1 (S aint (BMI) [Ratio] [facility]) Body weight 132 [lb_av] 132 [lb_av] [facility]) Body height [in_i] eCW1 ([facility]) Diastolic blood 66 mm[Hg] 66 mm[Hg] eCW1 ([facility] Systolic blood 126 mm[Hg] 126 mm[Hg] eCW1 ([facility] t pressure [facility]) Heart rate 60 /min 60 /min eCW1 ([facility]) Body mass index 23.41 kg/m2 23.41 kg/m2 eCW1 (S aint (BMI) [Ratio] [facility]) Body weight 128 [lb_av] 128 [lb_av] [facility]) Body height [in_us] eCW1 ([facility]) Diastolic blood 74 mm[Hg] 74 mm[Hg] eCW1 ([facility]ad nt pressure [facility]) Systolic blood 126 mm[Hg] 126 mm[Hg] eCW1 ([facility] t [facility] Heart rate 60 /min 60 /min eCW1 ([facility]) Body mass index 24.14 kg/m2 24.14 kg/m2 eCW1 (S aint (BMI) [Ratio] [facility]) Body weight 132 [lb_av] 132 [lb_av] eCW1 [facility]) Body height [in_us] eCW1 ([facility]) Diastolic blood 77 mm[Hg] 77 mm[Hg] eCW1 ([facility]ad nt pressure [facility]) Systolic blood 132 mm[Hg] 132 mm[Hg] eCW1 ([facility]cey t pressure [facility]) Heart rate 70 /min 70 /min eCW1 ([facility]) Body mass index 24.32 kg/m2 24.32 kg/m2 eCW1 (S aint (BMI) [Ratio] [facility] Practice [facility]) Body weight 133 [lb_av] 133 [lb_av] eCW1 ([facility]) Body height [in_us] eCW1 ([facility]) Diastolic blood 62 mm[Hg] 62 mm[Hg] eCW1 ([facility]zad nt pressure [facility]) Systolic blood 135 mm[Hg] 135 mm[Hg] eCW1 ([facility]y t pressure [facility]) Heart rate 68 /min 68 /min eCW1 ([facility]) Body mass index 24.51 kg/m2 24.51 kg/m2 eCW1 (S aint (BMI) [Ratio] [facility]) Body weight 134 [lb_av] 134 [lb_av] eCW1 ([facility] Me[facility]) Body height [in_us] eCW1 ([place] [facility]) Systolic blood 132 mm[Hg] 132 mm[Hg] eCW1 ([facility]cey t pressure [facility]) Diastolic blood 77 mm[Hg] 77 mm[Hg] eCW1 ([facility]zad nt pressure [facility]) Heart rate 60 /min 60 /min eCW1 ([facility]) Body weight 135 [lb_av] 135 [lb_av] eCW1 ([facility] Measured [facility]) Patient Treatment Plan of Care Planned Activity Planned Date Details Description Data Source (s) Lisinopril 10 MG Oral 01/20/2017 12:00:00 eCW1 ([facility] Tablet AM EDT [facility]) Lisinopril 10 MG Oral 01/20/2017 12:00:00 eCW1 ([facility] Tablet AM EDT [facility]) Lisinopril 10 MG Oral 01/20/2017 12:00:00 eCW1 ([facility] Tablet AM EDT [facility]) Lorazepam 2 MG Oral 11/09/2015 12:00:00 e CW1 ([facility] Tablet AM EDT [facility] Pract[facility]) Lorazepam 2 MG Oral 11/09/2015 12:00:00 e CW1 ([facility] Tablet AM EDT [facility] Pract[facility]) Lorazepam 2 MG Oral 11/09/2015 12:00:00 e CW1 ([facility] Tablet AM EDT [facility] Pract[facility]) Citalopram 20 MG Oral 11/09/2015 12:00:00 eCW1 ([facility] Tablet [Celexa] AM EDT [facility]) Lorazepam 2 MG Oral 11/09/2015 12:00:00 e CW1 ([facility] Tablet AM EDT Medical Practic e PC) Lorazepam 2 MG Oral 11/09/2015 12:00:00 e CW1 ([facility] Tablet AM EDT Medical Practic e PC) Lorazepam 2 MG Oral 11/09/2015 12:00:00 e CW1 ([facility] Tablet AM EDT Medical Practic e PC) Lorazepam 2 MG Oral 11/09/2015 12:00:00 e CW1 ([facility] Tablet AM EDT [facility] Practic e [facility]) 24 HR metoprolol eCW1 ([facility] succinate 50 MG Extended Med ical Practice PC) Release Oral Tablet Amlodipine 5 MG Oral eCW1 (S aint [facility] Tablet [facility]) 24 HR metoprolol eCW1 ([facility] succinate 50 MG Extended Med ical Practice [facility]) Release Oral Tablet Amlodipine 5 MG Oral eCW1 (S aint [facility] Tablet [facility]) Amlodipine 5 MG Oral eCW1 (S aint [facility] Tablet [facility]) 24 HR metoprolol eCW1 ([facility] succinate 50 MG Extended Med ical Practice PC) Release Oral Tablet atorvastatin 20 MG Oral eCW1 ([facility] Tablet [facility]) atorvastatin 20 MG Oral eCW1 ([facility] Tablet [facility]) Amlodipine 5 MG Oral eCW1 (S aint [facility] Tablet [facility] Pract[facility]) Diclofenac Potassium 50 eCW1 ([facility] MG Oral Tablet Medical Pract ice PC) 24 HR metoprolol eCW1 ([facility] succinate 50 MG Extended Med ical Practice PC) Release Oral Tablet atorvastatin 20 MG Oral eCW1 ([facility] Tablet Medical Pract[facility] PC) 24 HR metoprolol eCW1 ([facility] succinate 50 MG Extended Med ical Practice PC) Release Oral Tablet
--- NOTE | 2019-12-22 09:06 | EKG ---
Test Reason : Blood Pressure : / mmHG Vent. Rate : 055 BPM Atrial Rate : 055 BPM P-R Int : 138 ms QRS Dur : 080 ms QT Int : 430 ms P-R-T Axes : 065 030 039 degrees QTc Int : 411 ms SINUS BRADYCARDIA POSSIBLE LEFT ATRIAL ENLARGEMENT BORDERLINE ECG WHEN COMPARED WITH ECG OF 09-JUN-2017 18:11, NO SIGNIFICANT CHANGE WAS FOUND Confirmed by MD GINA, MAIKEL ([id number]) on 12/22/2019 9:06:18 AM Referred By: Confirmed By:MAIKEL FUENTES MD
== END 2019-12-21 19:18 | disposition home or self-care (01) ==
LOC: JER 15:00
DX: R42 Dizziness and giddiness (principal)
CPT/HCPCS: 36415; 71045-TC-FY; 80053; 81003; 82550; 84484; 85025; 87086; 93005; 93010; 99285-25; U0003

== ENCOUNTER 2020-11-18 13:39 | Emergency (ER) | payer MEDICARE, OTHER ==
[2020-11-18 13:54] VITALS: BP 141/67; PULSE 61; TEMP 98.5; BMI 22.8
[2020-11-18 15:39] LABS: PH,URINE 5.5 (5.0-8.0); URINE APPEARANCE CLEAR; URINE BILIRUBIN NEGATIVE (NEGATIVE); URINE COLOR YELLOW; URINE GLUCOSE (UA) TRACE (NEGATIVE); URINE KETONE NEGATIVE (NEGATIVE); URINE LEUK ESTERASE NEGATIVE (NEGATIVE); URINE NITRITE NEGATIVE (NEGATIVE); URINE PROTEIN NEGATIVE (NEGATIVE); URINE UROBILINOGEN 0.2 mg/dL (0.2-1.0)
[2020-11-18] MEDS ORDERED: IBUPROFEN 400 MG TABLET (FP) PO ONE ×2 (15:39→15:47)
[2020-11-18] MEDS ORDERED: METHOCARBAMOL 500 MG TABLET PO ONE (15:39)
[2020-11-18] MEDS ORDERED: METHOCARBAMOL 500 MG TABLET ONE (15:46)
== END 2020-11-18 17:19 | disposition home or self-care (01) ==
LOC: JER 13:39
DX: M62.830 Muscle spasm of back (principal)
CPT/HCPCS: 76775-TC; 81003; 87086; 99284-25

== ENCOUNTER 2021-07-27 12:56 | Emergency (ER) | payer MEDICARE, OTHER ==
[2021-07-27 13:04] VITALS: BP 128/70; PULSE 96; TEMP 98; BMI 22.3
[2021-07-27] MEDS ORDERED: SODIUM CHLORIDE 1,000 ML IV STA (13:53)
[2021-07-27 14:20] LABS: BASO % 0.7 % (0-2.0); EOS % 0.2 % (0-4.5); HEMATOCRIT 43.2 % (32.4-45.2); HEMOGLOBIN 14.5 GM/dL (10.7-15.3); LYMPH % 24.5 % (8-40); MCH 30.5 pg (25.7-33.7); MCHC 33.5 g/dl (32.0-36.0); MEAN CELL VOLUME 91.1 fl (80-96); MEAN PLT VOLUME 9.6 fl (7.5-11.1); MONO % 5.8 % (3.8-10.2); NEUT % 68.8 % (42.8-82.8); PLATELET COUNT 204 10^3/uL (134-434); RBC 4.74 M/mm3 (3.60-5.2); RDW 14.1 % (11.6-15.6); WHITE BLOOD COUNT 7.2 K/mm3 (4.0-10.0)
[2021-07-27 14:21] LABS: PH,URINE 5.5 (5.0-8.0); URINE APPEARANCE CLEAR; URINE BILIRUBIN NEGATIVE (NEGATIVE); URINE COLOR DK YELLOW; URINE GLUCOSE (UA) NEGATIVE (NEGATIVE); URINE KETONE TRACE (NEGATIVE); URINE LEUK ESTERASE NEGATIVE (NEGATIVE); URINE NITRITE NEGATIVE (NEGATIVE); URINE PROTEIN NEGATIVE (NEGATIVE)
[2021-07-27 14:49] LABS: CALCIUM 9.9 mg/dL (8.5-10.1)
[2021-07-27 14:50] LABS: ALBUMIN 4.2 g/dl (3.4-5.0); BLOOD UREA NITROGEN 15.3 mg/dL (7-18); MAGNESIUM 2.1 mg/dL (1.8-2.4)
[2021-07-27 14:53] LABS: CREATININE 0.8 mg/dL (0.55-1.3); PHOSPHOROUS 3.8 mg/dL (2.5-4.9)
[2021-07-27 14:54] LABS: BILIRUBIN,TOTAL 0.3 mg/dL (0.2-1); TOT PROT 7.6 g/dl (6.4-8.2)
== END 2021-07-27 17:25 | disposition home or self-care (01) ==
LOC: JER 12:56
PROC: 3E0337Z Introduction of Electrolytic and Water Balance Substance into Peripheral Vein, Percutaneous Approach (ICD-10-PCS; principal; 2021-07-27)
DX: R53.1 Weakness (principal)
CPT/HCPCS: 36415; 80053; 81003; 82962; 83735; 84100; 84443; 85025; 93005; 93010; 96360; 99284-25; C9803-CS; U0003; U0005